=== PATIENT | male | born 1935 | race African-American/Black ===

== ENCOUNTER 2017-10-17 12:59 | Inpatient (IN) ==
[2017-10-17] MEDS ORDERED: ALUM/MAG/SIMETH/LIDO VISC 1:1 30 ML BOTTLE PO STA (13:41)
[2017-10-17] MEDS ORDERED: ONDANSETRON 4 MG/2 ML VIAL IV STA (13:41)
[2017-10-17] MEDS ORDERED: HYDROmorphone 2 MG/1 ML VIAL IV STA (13:41)
[2017-10-17] MEDS ORDERED: SODIUM CHLORIDE 0.9% 1,000 ML IV STA (13:41)
[2017-10-17 15:22] LABS: Basophils % 0.2 % (0.0-0.8); Hemoglobin 15.1 GM/DL (14.0-18.0); Immature Granulocytes % 0.2 %; Immature Granulocytes Absolute 0.01 #; Lymphocytes # 0.4 10*3/uL (1.4-4.0); Lymphocytes % 8.4 % (21.2-54.2); Mean Corpuscular HGB Conc 35.1 GM/DL (32-36); Mean Corpuscular Hemoglobin 28 PG (27-34); Mean Corpuscular Volume 79.3 FL (87-102); Mean Platelet Volume 9.6 FL (9.6-12.0); Monocytes # 0.3 10*3/uL (0.11-0.8); Monocytes % 5.4 % (1.7-12.7); Neutrophils # 4.5 10*3/uL (1.4-7.4); Neutrophils % 85.8 % (38.7-73.9); Platelet Count 197 T/CUMM (130-400); Red Blood Count 5.42 MC/CUMM (3.8-5.5); Red Cell Distribution Width 13.1 % (9.3-17.3); White Blood Count 5.2 T/CUMM (4-12)
[2017-10-17 15:32] LABS: Lactic Acid 1.3 MMOL/L (0.4-2.0)
[2017-10-17 15:34] LABS: Albumin 4.4 G/DL (3.4-5.0); Calcium 8.8 MG/DL (8.5-10.1); Osmolality,Calculated 284.7 MOS/KG (273-304); Potassium 3.9 MMOL/L (3.5-5.1); Total Protein 8.1 G/DL (6.4-8.3)
[2017-10-17 16:20] LABS: Apearance,Urine CLEAR (Clear); Bilirubin,Urine Negative (Negative); Blood, Urine Small mg/dL (Negative); Glucose,Urine (UA) >=500 mg/dL (Negative); Hyaline Casts,Urine 3 /LPF (0-3); Ketones,Urine Negative (Negative); Mucus,Urine Occasional /LPF (Occasional); Nitrite,Urine Negative (Negative); Protein,Urine >=500 MG/DL; RBC,Urine 3 /HPF (0-4); Urine Color Yellow (Yellow); Urine Specific Gravity 1.016 (1.001-1.035); Urine Urobilinogen < 2.0 EU/DL (0.2-1.0); WBC,Urine 3 /HPF (0-6)
[2017-10-17] MEDS ORDERED: hydrALAZINE 20 MG/1 ML VIAL ONE (16:37)
[2017-10-17] MEDS ORDERED: hydrALAZINE 20 MG/1 ML VIAL IV STA (17:07)
[2017-10-17] MEDS ORDERED: HYDROmorphone 2 MG/1 ML VIAL IV ONE (17:19)
[2017-10-17] MEDS ORDERED: niCARdipine 25 MG/10 ML VIAL IV ONE (17:19)
[2017-10-17] MEDS: niCARdipine INJ 25 MG in SODIUM CHLORIDE 0.9% 240 ML IV PRN (17:35)
[2017-10-17] MEDS ORDERED: ACETAMINOPHEN 325 MG TABLET PO PRN (18:28)
[2017-10-17] MEDS ORDERED: SODIUM CHLORIDE 0.9% 1,000 ML IV SCH (18:28)
[2017-10-17] MEDS: DOCUSATE SODIUM 100 MG CAPSULE PO SCH (21:33)
[2017-10-17] MEDS: amLODIPine 5 MG TABLET PO SCH (21:33)
[2017-10-17] MEDS: GABAPENTIN 300 MG CAPSULE PO SCH (21:33)
[2017-10-17] MEDS: LISINOPRIL 20 MG TABLET PO SCH (21:33)
[2017-10-17] MEDS: traZODone 50 MG TABLET PO SCH (21:33)
[2017-10-17] MEDS: ENOXAPARIN 40 MG/0.4 ML SYRINGE SUBCUT SCH (21:34)
[2017-10-18 03:36] LABS: Basophils % 0.2 % (0.0-0.8); Hematocrit 45.5 VOL% (42.0-52.0); Hemoglobin 15.2 GM/DL (14.0-18.0); Immature Granulocytes % 0.2 %; Immature Granulocytes Absolute 0.01 #; Lymphocytes # 0.7 10*3/uL (1.4-4.0); Lymphocytes % 13.5 % (21.2-54.2); Mean Corpuscular HGB Conc 33.4 GM/DL (32-36); Mean Corpuscular Hemoglobin 28 PG (27-34); Mean Corpuscular Volume 82.3 FL (87-102); Mean Platelet Volume 9.5 FL (9.6-12.0); Monocytes # 0.8 10*3/uL (0.11-0.8); Monocytes % 15.7 % (1.7-12.7); Neutrophils # 3.6 10*3/uL (1.4-7.4); Neutrophils % 70.4 % (38.7-73.9); Platelet Count 194 T/CUMM (130-400); Red Blood Count 5.53 MC/CUMM (3.8-5.5); Red Cell Distribution Width 13.3 % (9.3-17.3); White Blood Count 5.2 T/CUMM (4-12)
[2017-10-18 04:02] LABS: Band Neutrophils 5 % (0-10); Lymphocytes 16 % (20-55); Polychromasia Slight; Segmented Neutrophils 67 % (50-85); Total Cells Counted 100
[2017-10-18 04:06] LABS: Albumin 4.2 G/DL (3.4-5.0); Bilirubin,Total 1.2 MG/DL (0.2-1.0); Osmolality,Calculated 288.1 MOS/KG (273-304); Potassium 4.5 MMOL/L (3.5-5.1); Risk Ratio 3.59; Total Protein 7.8 G/DL (6.4-8.3); VLDL CHOLESTEROL 19.8 MG/DL
[2017-10-18] MEDS: DOCUSATE SODIUM 100 MG CAPSULE PO SCH ×2 (08:36→22:00)
[2017-10-18] MEDS: GABAPENTIN 300 MG CAPSULE PO SCH ×3 (08:36→22:00)
[2017-10-18] MEDS: PANTOPRAZOLE 40 MG VIAL IV SCH (08:36)
[2017-10-18] MEDS: amLODIPine 5 MG TABLET PO SCH (08:37)
[2017-10-18] MEDS: TAMSULOSIN 0.4 MG CAPSULE PO SCH (08:37)
[2017-10-18] MEDS: LISINOPRIL 20 MG TABLET PO SCH ×2 (08:37→22:00)
[2017-10-18] MEDS: ALLOPURINOL 100 MG TABLET PO SCH (08:37)
[2017-10-18] MEDS: ROSUVASTATIN 20 MG TABLET PO SCH (08:38)
[2017-10-18] MEDS: hydroCHLOROthiazide 12.5 MG CAPSULE PO SCH (08:38)
[2017-10-18 08:41] LABS: Lactic Acid 2.2 MMOL/L (0.4-2.0)
[2017-10-18] MEDS: ONDANSETRON 4 MG/2 ML VIAL IV PRN ×2 (08:42→13:48)
[2017-10-18 11:24] LABS: Bacteria,Urine Many /HPF (Few); Squamous Epithelial Cell,Urine Many /HPF (0-10); WBC,Urine 19 /HPF (0-6)
[2017-10-18 11:26] LABS: Apearance,Urine Cloudy (Clear); Bilirubin,Urine 4 mg/dL (Negative); Glucose,Urine (UA) 50 mg/dL (Negative); Ketones,Urine Negative (Negative); Nitrite,Urine Positive (Negative); Protein,Urine 100 MG/DL; Urine Specific Gravity 1.015 (1.001-1.035)
[2017-10-18 11:27] LABS: Blood, Urine Large mg/dL (Negative)
[2017-10-18] MEDS ORDERED: PROMETHAZINE 25 MG/1 ML VIAL IM PRN (11:39)
[2017-10-18] MEDS: cefTRIAXone 1,000 MG in SYRINGE 1 EACH IV SCH (12:01)
[2017-10-18 12:49] LABS: Apearance,Urine Slightly Hazy (Clear); Bacteria,Urine Occasional /HPF (Few); Bilirubin,Urine Negative (Negative); Blood, Urine Moderate mg/dL (Negative); Glucose,Urine (UA) 50 mg/dL (Negative); Ketones,Urine 5 mg/dL (Negative); Mucus,Urine Occasional /LPF (Occasional); Nitrite,Urine Negative (Negative); Protein,Urine >=500 MG/DL; RBC,Urine 2 /HPF (0-4); Sperm,Urine Occasional /HPF (Negative); Squamous Epithelial Cell,Urine Occasional /HPF (0-10); Urine Color Yellow (Yellow); Urine Specific Gravity 1.022 (1.001-1.035); Urine Urobilinogen < 2.0 EU/DL (0.2-1.0); WBC,Urine 1 /HPF (0-6)
[2017-10-18] MEDS: LABETALOL 200 MG TABLET PO SCH ×2 (13:42→22:00)
[2017-10-18] MEDS: metroNIDAZOLE INJ 500 MG in PREMIX 1 EACH IV SCH ×2 (15:10→22:00)
[2017-10-18] MEDS: niCARdipine INJ 25 MG in SODIUM CHLORIDE 0.9% 240 ML IV PRN (16:37)
[2017-10-18] MEDS: SODIUM CHLORIDE 0.45% 1,000 ML IV SCH (17:36)
[2017-10-18] MEDS: traZODone 50 MG TABLET PO SCH (22:00)
[2017-10-18] MEDS: ENOXAPARIN 40 MG/0.4 ML SYRINGE SUBCUT SCH (22:00)
[2017-10-19] MEDS: niCARdipine INJ 25 MG in SODIUM CHLORIDE 0.9% 240 ML IV PRN ×2 (02:37→09:18)
[2017-10-19 03:16] LABS: Basophils % 0.4 % (0.0-0.8); Hematocrit 41.7 VOL% (42.0-52.0); Hemoglobin 14.3 GM/DL (14.0-18.0); Immature Granulocytes % 0.4 %; Immature Granulocytes Absolute 0.02 #; Lymphocytes # 0.6 10*3/uL (1.4-4.0); Lymphocytes % 11.5 % (21.2-54.2); Mean Corpuscular HGB Conc 34.3 GM/DL (32-36); Mean Corpuscular Hemoglobin 28 PG (27-34); Mean Corpuscular Volume 80.8 FL (87-102); Mean Platelet Volume 10.1 FL (9.6-12.0); Monocytes # 0.5 10*3/uL (0.11-0.8); Monocytes % 9.7 % (1.7-12.7); Neutrophils # 4.3 10*3/uL (1.4-7.4); Platelet Count 171 T/CUMM (130-400); Red Blood Count 5.16 MC/CUMM (3.8-5.5); Red Cell Distribution Width 13.2 % (9.3-17.3); White Blood Count 5.5 T/CUMM (4-12)
[2017-10-19] MEDS: SODIUM CHLORIDE 0.45% 1,000 ML IV SCH ×3 (03:36→23:34)
[2017-10-19 03:41] LABS: Calcium 8.8 MG/DL (8.5-10.1); Osmolality,Calculated 291.3 MOS/KG (273-304); Potassium 3.9 MMOL/L (3.5-5.1)
[2017-10-19] MEDS: ONDANSETRON 4 MG/2 ML VIAL IV PRN (05:40)
[2017-10-19] MEDS: GABAPENTIN 300 MG CAPSULE PO SCH ×3 (05:42→21:15)
[2017-10-19] MEDS: metroNIDAZOLE INJ 500 MG in PREMIX 1 EACH IV SCH ×3 (05:42→22:30)
[2017-10-19] MEDS: hydroCHLOROthiazide 12.5 MG CAPSULE PO SCH (08:45)
[2017-10-19] MEDS: LISINOPRIL 20 MG TABLET PO SCH ×2 (08:45→21:15)
[2017-10-19] MEDS: ALLOPURINOL 100 MG TABLET PO SCH (08:46)
[2017-10-19] MEDS: PANTOPRAZOLE 40 MG VIAL IV SCH (08:46)
[2017-10-19] MEDS: LABETALOL 200 MG TABLET PO SCH ×2 (08:46→21:15)
[2017-10-19] MEDS: ASPIRIN EC 81 MG TABLET PO SCH (08:46)
[2017-10-19] MEDS: ROSUVASTATIN 20 MG TABLET PO SCH (08:46)
[2017-10-19] MEDS: DOCUSATE SODIUM 100 MG CAPSULE PO SCH ×2 (08:46→21:15)
[2017-10-19] MEDS: TAMSULOSIN 0.4 MG CAPSULE PO SCH (08:46)
[2017-10-19] MEDS: HYDROmorphone 2 MG/1 ML VIAL IV PRN (12:42)
[2017-10-19] MEDS: POLYETHYLENE GLYCOL POWDER 17 GM PACK PO SCH (12:44)
[2017-10-19] MEDS: cefTRIAXone 1,000 MG in SYRINGE 1 EACH IV SCH (12:44)
[2017-10-19] MEDS: traZODone 50 MG TABLET PO SCH (21:15)
[2017-10-19] MEDS: ENOXAPARIN 40 MG/0.4 ML SYRINGE SUBCUT SCH (23:35)
[2017-10-20] MEDS: GABAPENTIN 300 MG CAPSULE PO SCH ×3 (05:43→21:05)
[2017-10-20] MEDS: ACETAMINOPHEN 325 MG TABLET PO PRN (05:43)
[2017-10-20] MEDS: metroNIDAZOLE INJ 500 MG in PREMIX 1 EACH IV SCH ×3 (05:44→23:20)
[2017-10-20] MEDS: ROSUVASTATIN 20 MG TABLET PO SCH (09:32)
[2017-10-20] MEDS: ALLOPURINOL 100 MG TABLET PO SCH (09:32)
[2017-10-20] MEDS: PANTOPRAZOLE 40 MG VIAL IV SCH (09:32)
[2017-10-20] MEDS: LISINOPRIL 20 MG TABLET PO SCH ×2 (09:32→20:13)
[2017-10-20] MEDS: TAMSULOSIN 0.4 MG CAPSULE PO SCH (09:32)
[2017-10-20] MEDS: DOCUSATE SODIUM 100 MG CAPSULE PO SCH ×2 (09:32→20:14)
[2017-10-20] MEDS: hydroCHLOROthiazide 12.5 MG CAPSULE PO SCH (09:32)
[2017-10-20] MEDS: ASPIRIN EC 81 MG TABLET PO SCH (09:32)
[2017-10-20] MEDS: FINASTERIDE 5 MG TABLET PO SCH (09:32)
[2017-10-20] MEDS: POLYETHYLENE GLYCOL POWDER 17 GM PACK PO SCH (09:33)
[2017-10-20] MEDS: SODIUM CHLORIDE 0.45% 1,000 ML IV SCH (12:38)
[2017-10-20] MEDS: cefTRIAXone 1,000 MG in SYRINGE 1 EACH IV SCH (13:48)
[2017-10-20] MEDS: ENOXAPARIN 40 MG/0.4 ML SYRINGE SUBCUT SCH (20:13)
[2017-10-20] MEDS: traZODone 50 MG TABLET PO SCH (20:14)
[2017-10-21] MEDS: MORPHINE 4 MG/1 ML VIAL IV PRN ×2 (00:31→12:48)
[2017-10-21] MEDS: SODIUM CHLORIDE 0.45% 1,000 ML IV SCH ×2 (01:44→12:53)
[2017-10-21] MEDS: GABAPENTIN 300 MG CAPSULE PO SCH ×3 (05:35→21:10)
[2017-10-21] MEDS: metroNIDAZOLE INJ 500 MG in PREMIX 1 EACH IV SCH ×3 (05:35→21:40)
[2017-10-21] MEDS: PANTOPRAZOLE 40 MG VIAL IV SCH (09:01)
[2017-10-21] MEDS: POLYETHYLENE GLYCOL POWDER 17 GM PACK PO SCH (09:01)
[2017-10-21] MEDS: ASPIRIN EC 81 MG TABLET PO SCH (09:01)
[2017-10-21] MEDS: ROSUVASTATIN 20 MG TABLET PO SCH (09:01)
[2017-10-21] MEDS: DOCUSATE SODIUM 100 MG CAPSULE PO SCH ×2 (09:01→21:39)
[2017-10-21] MEDS: TAMSULOSIN 0.4 MG CAPSULE PO SCH (09:01)
[2017-10-21] MEDS: LISINOPRIL 20 MG TABLET PO SCH ×2 (09:01→21:10)
[2017-10-21] MEDS: FINASTERIDE 5 MG TABLET PO SCH (09:02)
[2017-10-21] MEDS: hydroCHLOROthiazide 12.5 MG CAPSULE PO SCH (09:02)
[2017-10-21] MEDS: ALLOPURINOL 100 MG TABLET PO SCH (09:03)
[2017-10-21] MEDS: cefTRIAXone 1,000 MG in SYRINGE 1 EACH IV SCH (12:44)
[2017-10-21] MEDS: ENOXAPARIN 40 MG/0.4 ML SYRINGE SUBCUT SCH (21:10)
[2017-10-21] MEDS: traZODone 50 MG TABLET PO SCH (21:10)
[2017-10-21] MEDS: ONDANSETRON 4 MG/2 ML VIAL IV PRN (21:10)
[2017-10-22] MEDS: SODIUM CHLORIDE 0.45% 1,000 ML IV SCH ×3 (01:30→14:57)
[2017-10-22] MEDS: metroNIDAZOLE INJ 500 MG in PREMIX 1 EACH IV SCH ×3 (06:06→21:37)
[2017-10-22] MEDS: GABAPENTIN 300 MG CAPSULE PO SCH ×3 (06:06→21:36)
[2017-10-22] MEDS: ROSUVASTATIN 20 MG TABLET PO SCH (08:33)
[2017-10-22] MEDS: ASPIRIN EC 81 MG TABLET PO SCH (08:33)
[2017-10-22] MEDS: ALLOPURINOL 100 MG TABLET PO SCH (08:34)
[2017-10-22] MEDS: hydroCHLOROthiazide 12.5 MG CAPSULE PO SCH (08:34)
[2017-10-22] MEDS: PANTOPRAZOLE 40 MG VIAL IV SCH (08:34)
[2017-10-22] MEDS: LISINOPRIL 20 MG TABLET PO SCH ×2 (08:34→20:23)
[2017-10-22] MEDS: DOCUSATE SODIUM 100 MG CAPSULE PO SCH ×3 (08:34→20:23)
[2017-10-22] MEDS: FINASTERIDE 5 MG TABLET PO SCH (08:34)
[2017-10-22] MEDS: TAMSULOSIN 0.4 MG CAPSULE PO SCH (08:34)
[2017-10-22] MEDS: POLYETHYLENE GLYCOL POWDER 17 GM PACK PO SCH (08:37)
[2017-10-22] MEDS ORDERED: ROCURONIUM 100 MG/10 ML VIAL IV ONE (11:38)
[2017-10-22] MEDS: PROPOFOL 1,000 MG/100 ML BOTTLE IV SCH ×3 (11:50→17:53)
[2017-10-22] MEDS ORDERED: PHENYLEPHRINE DRIP 40 MG/250 ML PREMIX IV ONE (11:54)
[2017-10-22] MEDS ORDERED: PHENYLEPHRINE DRIP 40 MG/250 ML PREMIX IV PRN (12:26)
[2017-10-22 12:40] LABS: ABG Base Excess 1.9 MMOL/L (-2.5-2.5); ABG HCO3 26.1 MMOL/L (20-26); ABG PCO2 38.2 MM HG (35-48)
[2017-10-22 12:42] LABS: Basophils % 0.7 % (0.0-0.8); Eosinophils # 0.1 10*3/uL (0.0-0.87); Eosinophils % 2.8 % (0.00-10.9); Hematocrit 33.7 VOL% (42.0-52.0); Hemoglobin 11.5 GM/DL (14.0-18.0); Immature Granulocytes % 0.7 %; Immature Granulocytes Absolute 0.03 #; Lymphocytes # 0.7 10*3/uL (1.4-4.0); Lymphocytes % 16.9 % (21.2-54.2); Mean Corpuscular HGB Conc 34.1 GM/DL (32-36); Mean Corpuscular Hemoglobin 28 PG (27-34); Mean Corpuscular Volume 80.8 FL (87-102); Mean Platelet Volume 10.4 FL (9.6-12.0); Monocytes # 0.6 10*3/uL (0.11-0.8); Monocytes % 13.9 % (1.7-12.7); Neutrophils # 2.8 10*3/uL (1.4-7.4); Platelet Count 112 T/CUMM (130-400); Red Blood Count 4.17 MC/CUMM (3.8-5.5); Red Cell Distribution Width 12.4 % (9.3-17.3); White Blood Count 4.3 T/CUMM (4-12)
[2017-10-22 13:05] LABS: Calcium 8.2 MG/DL (8.5-10.1); Osmolality,Calculated 280.7 MOS/KG (273-304); Potassium 3.2 MMOL/L (3.5-5.1)
[2017-10-22] MEDS: cefTRIAXone 1,000 MG in SYRINGE 1 EACH IV SCH (14:41)
[2017-10-22] MEDS: traZODone 50 MG TABLET PO SCH (20:23)
[2017-10-22] MEDS: ENOXAPARIN 40 MG/0.4 ML SYRINGE SUBCUT SCH (20:23)
[2017-10-23] MEDS: SODIUM CHLORIDE 0.45% 1,000 ML IV SCH ×5 (00:18→23:28)
[2017-10-23] MEDS: PROPOFOL 1,000 MG/100 ML BOTTLE IV SCH ×2 (00:19→13:13)
[2017-10-23 04:15] LABS: ABG Base Excess 2.1 MMOL/L (-2.5-2.5); ABG HCO3 22.8 MMOL/L (20-26); ABG Oxygen Saturation 98.9 % (95-100); ABG PCO2 24.5 MM HG (35-48); ABG PH 7.587 (7.35-7.45); ABG PO2 273.1 MM HG (80-95); ABG TCO2 23.6 MMOL/L (23-27); Pt O2 Delivery Device Ventilator
[2017-10-23 04:27] LABS: Calcium 8.4 MG/DL (8.5-10.1); Osmolality,Calculated 284.3 MOS/KG (273-304); Potassium 3.2 MMOL/L (3.5-5.1)
[2017-10-23] MEDS: GABAPENTIN 300 MG CAPSULE PO SCH ×3 (05:36→22:10)
[2017-10-23] MEDS: metroNIDAZOLE INJ 500 MG in PREMIX 1 EACH IV SCH ×3 (05:36→22:11)
[2017-10-23] MEDS: LISINOPRIL 20 MG TABLET PO SCH (09:41)
[2017-10-23] MEDS: hydroCHLOROthiazide 12.5 MG CAPSULE PO SCH (09:41)
[2017-10-23] MEDS: FINASTERIDE 5 MG TABLET PO SCH (09:54)
[2017-10-23] MEDS: ROSUVASTATIN 20 MG TABLET PO SCH (09:54)
[2017-10-23] MEDS: DOCUSATE SODIUM 100 MG CAPSULE PO SCH ×2 (09:54→22:10)
[2017-10-23] MEDS: ASPIRIN EC 81 MG TABLET PO SCH (09:54)
[2017-10-23] MEDS: TAMSULOSIN 0.4 MG CAPSULE PO SCH (09:54)
[2017-10-23] MEDS: ALLOPURINOL 100 MG TABLET PO SCH (09:54)
[2017-10-23] MEDS: PANTOPRAZOLE 40 MG VIAL IV SCH (09:55)
[2017-10-23] MEDS: POLYETHYLENE GLYCOL POWDER 17 GM PACK PO SCH (09:55)
[2017-10-23] MEDS: POTASSIUM CHLORIDE 20 MEQ/15 ML UDCUP PER TUBE PRN ×4 (09:55→22:10)
[2017-10-23 10:59] LABS: ABG Base Excess -0.5 MMOL/L (-2.5-2.5); ABG Oxygen Saturation 93.8 % (95-100); ABG PCO2 37.8 MM HG (35-48); ABG PH 7.409 (7.35-7.45); ABG PO2 72.4 MM HG (80-95); ABG TCO2 21.5 MMOL/L (23-27)
[2017-10-23] MEDS: cefTRIAXone 1,000 MG in SYRINGE 1 EACH IV SCH (13:03)
[2017-10-23 13:21] LABS: ABG Base Excess -0.2 MMOL/L (-2.5-2.5); ABG HCO3 24.2 MMOL/L (20-26); ABG Oxygen Saturation 98.6 % (95-100); ABG PCO2 38.7 MM HG (35-48); ABG PH 7.405 (7.35-7.45); ABG TCO2 21.9 MMOL/L (23-27); Allen Test Positive
[2017-10-23] MEDS: traZODone 50 MG TABLET PO SCH (22:09)
[2017-10-23] MEDS: ENOXAPARIN 40 MG/0.4 ML SYRINGE SUBCUT SCH (22:10)
[2017-10-24] MEDS: ACETAMINOPHEN 325 MG TABLET PO PRN (00:29)
[2017-10-24 03:21] LABS: ABG Base Excess 0.5 MMOL/L (-2.5-2.5); ABG HCO3 24.9 MMOL/L (20-26); ABG Oxygen Saturation 98.9 % (95-100); ABG PCO2 39.6 MM HG (35-48); ABG PH 7.409 (7.35-7.45); ABG TCO2 21.2 MMOL/L (23-27); Allen Test Positive
[2017-10-24 04:42] LABS: Basophils % 0.6 % (0.0-0.8); Eosinophils # 0.1 10*3/uL (0.0-0.87); Eosinophils % 1.8 % (0.00-10.9); Hematocrit 28.4 VOL% (42.0-52.0); Hemoglobin 9.7 GM/DL (14.0-18.0); Immature Granulocytes % 0.6 %; Immature Granulocytes Absolute 0.03 #; Lymphocytes # 0.7 10*3/uL (1.4-4.0); Lymphocytes % 13.2 % (21.2-54.2); Mean Corpuscular HGB Conc 34.2 GM/DL (32-36); Mean Corpuscular Hemoglobin 28 PG (27-34); Mean Corpuscular Volume 82.1 FL (87-102); Mean Platelet Volume 10.8 FL (9.6-12.0); Monocytes # 0.6 10*3/uL (0.11-0.8); Neutrophils # 3.6 10*3/uL (1.4-7.4); Neutrophils % 71.8 % (38.7-73.9); Platelet Count 91 T/CUMM (130-400); Red Blood Count 3.46 MC/CUMM (3.8-5.5); Red Cell Distribution Width 13.1 % (9.3-17.3)
[2017-10-24 04:59] LABS: Calcium 7.9 MG/DL (8.5-10.1); Osmolality,Calculated 283.3 MOS/KG (273-304); Potassium 3.6 MMOL/L (3.5-5.1)
[2017-10-24 05:08] LABS: Band Neutrophils 1 % (0-10); Eosinophils 2 % (0-10); Hypochromasia 1+; Lymphocytes 6 % (20-55); Ovalocytes Slight; Platelet Estimate Decreased; Segmented Neutrophils 79 % (50-85); Total Cells Counted 100
[2017-10-24] MEDS: GABAPENTIN 300 MG CAPSULE PO SCH ×3 (05:55→21:32)
[2017-10-24] MEDS: metroNIDAZOLE INJ 500 MG in PREMIX 1 EACH IV SCH ×3 (05:56→21:32)
[2017-10-24] MEDS: POTASSIUM CHLORIDE 20 MEQ/15 ML UDCUP PER TUBE PRN ×2 (05:56→09:01)
[2017-10-24] MEDS: SODIUM CHLORIDE 0.45% 1,000 ML IV SCH ×3 (07:45→21:17)
[2017-10-24] MEDS: PANTOPRAZOLE 40 MG VIAL IV SCH (08:43)
[2017-10-24] MEDS: TAMSULOSIN 0.4 MG CAPSULE PO SCH (08:43)
[2017-10-24] MEDS: ROSUVASTATIN 20 MG TABLET PO SCH (08:43)
[2017-10-24] MEDS: FINASTERIDE 5 MG TABLET PO SCH (08:43)
[2017-10-24] MEDS: ALLOPURINOL 100 MG TABLET PO SCH (08:43)
[2017-10-24] MEDS: DOCUSATE SODIUM 100 MG CAPSULE PO SCH ×2 (08:43→21:32)
[2017-10-24] MEDS: POLYETHYLENE GLYCOL POWDER 17 GM PACK PO SCH (08:43)
[2017-10-24] MEDS: ASPIRIN EC 81 MG TABLET PO SCH (08:43)
[2017-10-24] MEDS ORDERED: MAGNESIUM SULF RIDER 2 GM in PREMIX 1 EACH IV PRN (09:32)
[2017-10-24] MEDS ORDERED: MAGNESIUM SULF RIDER 4 GM in PREMIX 1 EACH IV PRN (09:32)
[2017-10-24] MEDS: amLODIPine 5 MG TABLET PO SCH (10:23)
[2017-10-24] MEDS: DORNASE ALFA 2.5 MG/2.5 ML VIAL RESP TX SCH ×2 (10:56→18:55)
[2017-10-24] MEDS: cefTRIAXone 1,000 MG in SYRINGE 1 EACH IV SCH (13:17)
[2017-10-24 13:30] LABS: Apearance,Urine Slightly Hazy (Clear); Bilirubin,Urine Negative (Negative); Blood, Urine Large mg/dL (Negative); Glucose,Urine (UA) Negative (Negative); Ketones,Urine 5 mg/dL (Negative); Nitrite,Urine Negative (Negative); Protein,Urine 100 MG/DL; RBC,Urine 3946 /HPF (0-4); Urine Color Red (Yellow); Urine Specific Gravity 1.013 (1.001-1.035); Urine Urobilinogen < 2.0 EU/DL (0.2-1.0); WBC,Urine 73 /HPF (0-6)
[2017-10-24] MEDS: hydrALAZINE 20 MG/1 ML VIAL IV PRN ×2 (15:35→21:33)
[2017-10-24] MEDS: traZODone 50 MG TABLET PO SCH (21:32)
[2017-10-24] MEDS: ENOXAPARIN 40 MG/0.4 ML SYRINGE SUBCUT SCH (21:33)
[2017-10-25] MEDS: HYDROmorphone 2 MG/1 ML VIAL IV PRN (01:46)
[2017-10-25 03:07] LABS: ABG Base Excess -1.7 MMOL/L (-2.5-2.5); ABG HCO3 23.9 MMOL/L (20-26); ABG Oxygen Saturation 98.2 % (95-100); ABG PCO2 43.9 MM HG (35-48); ABG PH 7.354 (7.35-7.45); ABG PO2 137.9 MM HG (80-95); ABG TCO2 25.3 MMOL/L (23-27); Allen Test Positive
[2017-10-25 04:49] LABS: Basophils % 0.4 % (0.0-0.8); Eosinophils # 0.1 10*3/uL (0.0-0.87); Eosinophils % 1.1 % (0.00-10.9); Hematocrit 30.9 VOL% (42.0-52.0); Hemoglobin 10.3 GM/DL (14.0-18.0); Immature Granulocytes % 0.6 %; Immature Granulocytes Absolute 0.03 #; Lymphocytes # 0.6 10*3/uL (1.4-4.0); Lymphocytes % 10.6 % (21.2-54.2); Mean Corpuscular HGB Conc 33.3 GM/DL (32-36); Mean Corpuscular Hemoglobin 28 PG (27-34); Mean Corpuscular Volume 83.1 FL (87-102); Mean Platelet Volume 10.8 FL (9.6-12.0); Monocytes # 0.6 10*3/uL (0.11-0.8); Monocytes % 11.3 % (1.7-12.7); Neutrophils # 4.1 10*3/uL (1.4-7.4); Platelet Count 110 T/CUMM (130-400); Red Blood Count 3.72 MC/CUMM (3.8-5.5); White Blood Count 5.4 T/CUMM (4-12)
[2017-10-25 05:03] LABS: Calcium 8.1 MG/DL (8.5-10.1); Osmolality,Calculated 282.4 MOS/KG (273-304); Potassium 3.9 MMOL/L (3.5-5.1)
[2017-10-25 05:04] LABS: Calcium 8.1 MG/DL (8.5-10.1); Osmolality,Calculated 284.3 MOS/KG (273-304); Potassium 3.9 MMOL/L (3.5-5.1)
[2017-10-25] MEDS: SODIUM CHLORIDE 0.45% 1,000 ML IV SCH ×3 (05:10→17:36)
[2017-10-25] MEDS: metroNIDAZOLE INJ 500 MG in PREMIX 1 EACH IV SCH ×3 (05:50→21:41)
[2017-10-25] MEDS: POTASSIUM CHLORIDE 20 MEQ/15 ML UDCUP PER TUBE PRN (05:50)
[2017-10-25] MEDS: GABAPENTIN 300 MG CAPSULE PO SCH ×3 (05:50→21:41)
[2017-10-25 06:37] LABS: RBC,Urine 140 /HPF (0-4); WBC,Urine 1 /HPF (0-6)
[2017-10-25 06:39] LABS: Apearance,Urine Slightly Cloudy (Clear); Bilirubin,Urine Negative (Negative); Glucose,Urine (UA) Negative (Negative); Ketones,Urine 25 mg/dL (Negative); Nitrite,Urine Negative (Negative); Protein,Urine 100 MG/DL; Urine Color Amber (Yellow); Urine Specific Gravity 1.015 (1.001-1.035)
[2017-10-25 06:40] LABS: Blood, Urine Large mg/dL (Negative); Urine Urobilinogen 0.2 EU/DL (0.2-1.0)
[2017-10-25] MEDS: DORNASE ALFA 2.5 MG/2.5 ML VIAL RESP TX SCH ×2 (06:54→19:50)
[2017-10-25] MEDS: PANTOPRAZOLE 40 MG VIAL IV SCH (08:38)
[2017-10-25] MEDS: TAMSULOSIN 0.4 MG CAPSULE PO SCH (08:43)
[2017-10-25] MEDS: DOCUSATE SODIUM 100 MG CAPSULE PO SCH ×2 (08:43→20:32)
[2017-10-25] MEDS: amLODIPine 5 MG TABLET PO SCH (08:43)
[2017-10-25] MEDS: ASPIRIN EC 81 MG TABLET PO SCH (08:43)
[2017-10-25] MEDS: ROSUVASTATIN 20 MG TABLET PO SCH (08:43)
[2017-10-25] MEDS: FINASTERIDE 5 MG TABLET PO SCH (08:43)
[2017-10-25] MEDS: ALLOPURINOL 100 MG TABLET PO SCH (08:45)
[2017-10-25] MEDS: POLYETHYLENE GLYCOL POWDER 17 GM PACK PO SCH (08:45)
[2017-10-25] MEDS: hydrALAZINE 20 MG/1 ML VIAL IV PRN ×2 (09:17→15:39)
[2017-10-25] MEDS: ALBUTEROL/IPRATROPIUM 3 ML NEB RESP TX SCH ×4 (10:11→23:24)
[2017-10-25] MEDS ORDERED: FUROSEMIDE 40 MG/4 ML VIAL IV ONE (11:08)
[2017-10-25] MEDS ORDERED: amLODIPine 5 MG TABLET PO ONE (11:15)
[2017-10-25] MEDS: cefTRIAXone 1,000 MG in SYRINGE 1 EACH IV SCH (11:54)
[2017-10-25] MEDS: traZODone 50 MG TABLET PO SCH (20:30)
[2017-10-25] MEDS: ENOXAPARIN 40 MG/0.4 ML SYRINGE SUBCUT SCH (20:32)
[2017-10-26] MEDS: ALBUTEROL/IPRATROPIUM 3 ML NEB RESP TX SCH ×6 (03:31→23:57)
[2017-10-26 04:11] LABS: ABG Base Excess 4.3 MMOL/L (-2.5-2.5); ABG HCO3 28.9 MMOL/L (20-26); ABG Oxygen Saturation 96.9 % (95-100); ABG PCO2 43.5 MM HG (35-48); ABG PH 7.441 (7.35-7.45); ABG PO2 98.9 MM HG (80-95); ABG TCO2 30.3 MMOL/L (23-27); Allen Test Positive
[2017-10-26 05:42] LABS: Basophils % 0.5 % (0.0-0.8); Eosinophils # 0.1 10*3/uL (0.0-0.87); Eosinophils % 2.9 % (0.00-10.9); Hematocrit 29.2 VOL% (42.0-52.0); Immature Granulocytes % 0.5 %; Immature Granulocytes Absolute 0.02 #; Lymphocytes # 0.6 10*3/uL (1.4-4.0); Mean Corpuscular HGB Conc 34.2 GM/DL (32-36); Mean Corpuscular Hemoglobin 28 PG (27-34); Mean Corpuscular Volume 80.7 FL (87-102); Mean Platelet Volume 10.2 FL (9.6-12.0); Monocytes # 0.7 10*3/uL (0.11-0.8); Monocytes % 17.2 % (1.7-12.7); Neutrophils # 2.7 10*3/uL (1.4-7.4); Neutrophils % 63.9 % (38.7-73.9); Platelet Count 120 T/CUMM (130-400); Red Blood Count 3.62 MC/CUMM (3.8-5.5); White Blood Count 4.2 T/CUMM (4-12)
[2017-10-26] MEDS ORDERED: ceFAZolin 1,000 MG in SYRINGE 1 EACH IV ONE (06:00)
[2017-10-26] MEDS ORDERED: diphenhydrAMINE CAP 25 MG CAPSULE PO ONE (06:00)
[2017-10-26] MEDS ORDERED: ceFAZolin 1,000 MG VIAL IRRIG ONE (06:00)
[2017-10-26] MEDS ORDERED: DIAZEPAM 5 MG TABLET PO ONE (06:00)
[2017-10-26] MEDS ORDERED: SODIUM CHLORIDE 0.9% 1,000 ML IV SCH ×2 (06:00)
[2017-10-26 06:02] LABS: Calcium 8.5 MG/DL (8.5-10.1); Potassium 3.6 MMOL/L (3.5-5.1)
[2017-10-26 06:03] LABS: Calcium 8.3 MG/DL (8.5-10.1); Potassium 3.6 MMOL/L (3.5-5.1)
[2017-10-26] MEDS: metroNIDAZOLE INJ 500 MG in PREMIX 1 EACH IV SCH ×3 (06:09→21:30)
[2017-10-26] MEDS: GABAPENTIN 300 MG CAPSULE PO SCH ×3 (06:10→21:12)
[2017-10-26 06:13] LABS: Eosinophils 4 % (0-10); Lymphocytes 19 % (20-55); Platelet Estimate Adequate; Segmented Neutrophils 69 % (50-85); Total Cells Counted 100
[2017-10-26] MEDS: DORNASE ALFA 2.5 MG/2.5 ML VIAL RESP TX SCH ×2 (06:53→20:14)
[2017-10-26] MEDS: ASPIRIN EC 81 MG TABLET PO SCH (08:11)
[2017-10-26] MEDS: ROSUVASTATIN 20 MG TABLET PO SCH (08:11)
[2017-10-26] MEDS: PANTOPRAZOLE 40 MG VIAL IV SCH (08:11)
[2017-10-26] MEDS: TAMSULOSIN 0.4 MG CAPSULE PO SCH (08:12)
[2017-10-26] MEDS: amLODIPine 10 MG TABLET PO SCH (08:12)
[2017-10-26] MEDS: ALLOPURINOL 100 MG TABLET PO SCH (08:12)
[2017-10-26] MEDS: FINASTERIDE 5 MG TABLET PO SCH (08:12)
[2017-10-26] MEDS: DOCUSATE SODIUM 100 MG CAPSULE PO SCH ×2 (08:12→21:13)
[2017-10-26] MEDS: hydrALAZINE 20 MG/1 ML VIAL IV PRN ×3 (08:24→23:06)
[2017-10-26] MEDS ORDERED: LIDOCAINE 1% 20 ML VIAL ONE (08:26)
[2017-10-26] MEDS ORDERED: MIDAZOLAM 2 MG/2 ML VIAL ONE ×2 (09:00→09:18)
[2017-10-26] MEDS ORDERED: fentaNYL 100 MCG/2 ML VIAL ONE (09:00)
[2017-10-26] MEDS: POLYETHYLENE GLYCOL POWDER 17 GM PACK PO SCH (09:00)
[2017-10-26] MEDS ORDERED: PROMETHAZINE 25 MG/1 ML VIAL ONE ×2 (09:19→09:20)
[2017-10-26] MEDS ORDERED: TISSUE ADHESIVE 1 EACH APPLICATOR TOP ONE (10:15)
[2017-10-26] MEDS ORDERED: DEXTROSE 50% 25 GM/50 ML VIAL IV PRN ×2 (10:23→11:05)
[2017-10-26] MEDS ORDERED: GLUCAGON 1 MG VIAL IM PRN ×2 (10:23→11:05)
[2017-10-26] MEDS: cefTRIAXone 1,000 MG in SYRINGE 1 EACH IV SCH (12:01)
[2017-10-26] MEDS ORDERED: SODIUM CHLORIDE 0.9% 500 ML IV ONE (14:58)
[2017-10-26] MEDS: SODIUM CHLORIDE 0.9% 1,000 ML IV SCH (15:13)
[2017-10-26] MEDS: INSULIN REGULAR 100 UNIT/ML SUBCUT SCH ×3 (15:28→21:13)
[2017-10-26] MEDS: traZODone 50 MG TABLET PO SCH (21:13)
[2017-10-26] MEDS: LISINOPRIL 20 MG TABLET PO SCH (21:13)
[2017-10-27] MEDS: SODIUM CHLORIDE 0.9% 1,000 ML IV SCH ×3 (03:04→16:51)
[2017-10-27 03:56] LABS: Basophils % 0.3 % (0.0-0.8); Eosinophils # 0.1 10*3/uL (0.0-0.87); Eosinophils % 1.1 % (0.00-10.9); Hematocrit 28.9 VOL% (42.0-52.0); Hemoglobin 9.9 GM/DL (14.0-18.0); Immature Granulocytes % 0.5 %; Immature Granulocytes Absolute 0.04 #; Lymphocytes # 0.5 10*3/uL (1.4-4.0); Lymphocytes % 5.9 % (21.2-54.2); Mean Corpuscular HGB Conc 34.3 GM/DL (32-36); Mean Corpuscular Hemoglobin 28 PG (27-34); Mean Platelet Volume 10.7 FL (9.6-12.0); Monocytes # 0.9 10*3/uL (0.11-0.8); Monocytes % 11.1 % (1.7-12.7); Neutrophils # 6.5 10*3/uL (1.4-7.4); Neutrophils % 81.1 % (38.7-73.9); Platelet Count 142 T/CUMM (130-400); Red Blood Count 3.57 MC/CUMM (3.8-5.5); Red Cell Distribution Width 13.1 % (9.3-17.3)
[2017-10-27] MEDS: ALBUTEROL/IPRATROPIUM 3 ML NEB RESP TX SCH ×6 (04:02→22:44)
[2017-10-27 04:29] LABS: Allen Test Positive
[2017-10-27 04:30] LABS: ABG HCO3 26.2 MMOL/L (20-26); ABG Oxygen Saturation 98.1 % (95-100); ABG PCO2 40.5 MM HG (35-48); ABG PH 7.425 (7.35-7.45)
[2017-10-27 04:35] LABS: Band Neutrophils 1 % (0-10); Lymphocytes 11 % (20-55); Platelet Estimate Normal; Segmented Neutrophils 83 % (50-85); Total Cells Counted 100
[2017-10-27] MEDS: metroNIDAZOLE INJ 500 MG in PREMIX 1 EACH IV SCH ×2 (06:29→17:33)
[2017-10-27] MEDS: GABAPENTIN 300 MG CAPSULE PO SCH ×3 (06:29→22:02)
[2017-10-27] MEDS: DORNASE ALFA 2.5 MG/2.5 ML VIAL RESP TX SCH ×2 (06:39→19:16)
[2017-10-27] MEDS: ASPIRIN EC 81 MG TABLET PO SCH (08:45)
[2017-10-27] MEDS: INSULIN REGULAR 100 UNIT/ML SUBCUT SCH ×4 (08:45→22:02)
[2017-10-27] MEDS: DOXAZOSIN 1 MG TABLET PO SCH ×2 (08:46→20:37)
[2017-10-27] MEDS: DOCUSATE SODIUM 100 MG CAPSULE PO SCH ×2 (08:46→20:37)
[2017-10-27] MEDS: ROSUVASTATIN 20 MG TABLET PO SCH (08:47)
[2017-10-27] MEDS: TAMSULOSIN 0.4 MG CAPSULE PO SCH (08:47)
[2017-10-27] MEDS: amLODIPine 10 MG TABLET PO SCH (08:47)
[2017-10-27] MEDS: ALLOPURINOL 100 MG TABLET PO SCH (08:48)
[2017-10-27] MEDS: PANTOPRAZOLE 40 MG VIAL IV SCH (08:48)
[2017-10-27] MEDS: FINASTERIDE 5 MG TABLET PO SCH (08:48)
[2017-10-27] MEDS: POLYETHYLENE GLYCOL POWDER 17 GM PACK PO SCH (08:48)
[2017-10-27] MEDS: LISINOPRIL 20 MG TABLET PO SCH ×2 (08:48→20:37)
[2017-10-27] MEDS: hydrALAZINE 20 MG/1 ML VIAL IV PRN (11:16)
[2017-10-27] MEDS: cefTRIAXone 1,000 MG in SYRINGE 1 EACH IV SCH (12:38)
[2017-10-27] MEDS: traZODone 50 MG TABLET PO SCH (20:37)
[2017-10-28] MEDS: SODIUM CHLORIDE 0.9% 1,000 ML IV SCH ×2 (02:34→10:00)
[2017-10-28] MEDS: ALBUTEROL/IPRATROPIUM 3 ML NEB RESP TX SCH ×6 (02:42→22:56)
[2017-10-28] MEDS: hydrALAZINE 20 MG/1 ML VIAL IV PRN (05:21)
[2017-10-28] MEDS: GABAPENTIN 300 MG CAPSULE PO SCH ×3 (05:21→21:01)
[2017-10-28 07:20] LABS: Calcium 8.1 MG/DL (8.5-10.1); Potassium 3.7 MMOL/L (3.5-5.1)
[2017-10-28] MEDS: DORNASE ALFA 2.5 MG/2.5 ML VIAL RESP TX SCH ×2 (07:52→19:28)
[2017-10-28] MEDS: DOCUSATE SODIUM 100 MG CAPSULE PO SCH ×2 (08:25→21:01)
[2017-10-28] MEDS: TAMSULOSIN 0.4 MG CAPSULE PO SCH (08:25)
[2017-10-28] MEDS: LISINOPRIL 20 MG TABLET PO SCH ×2 (08:25→21:01)
[2017-10-28] MEDS: ALLOPURINOL 100 MG TABLET PO SCH (08:25)
[2017-10-28] MEDS: ASPIRIN EC 81 MG TABLET PO SCH (08:25)
[2017-10-28] MEDS: FINASTERIDE 5 MG TABLET PO SCH (08:25)
[2017-10-28] MEDS: DOXAZOSIN 1 MG TABLET PO SCH ×2 (08:25→21:01)
[2017-10-28] MEDS: POLYETHYLENE GLYCOL POWDER 17 GM PACK PO SCH (08:25)
[2017-10-28] MEDS: PANTOPRAZOLE 40 MG VIAL IV SCH (08:25)
[2017-10-28] MEDS: ROSUVASTATIN 20 MG TABLET PO SCH (08:25)
[2017-10-28] MEDS: amLODIPine 10 MG TABLET PO SCH (08:25)
[2017-10-28] MEDS: INSULIN REGULAR 100 UNIT/ML SUBCUT SCH ×4 (08:26→21:05)
[2017-10-28] MEDS: cefTRIAXone 1,000 MG in SYRINGE 1 EACH IV SCH (12:48)
[2017-10-28] MEDS: traZODone 50 MG TABLET PO SCH (21:01)
[2017-10-29] MEDS: ALBUTEROL/IPRATROPIUM 3 ML NEB RESP TX SCH ×6 (02:27→23:41)
[2017-10-29 05:08] LABS: Basophils % 0.4 % (0.0-0.8); Eosinophils # 0.1 10*3/uL (0.0-0.87); Eosinophils % 2.6 % (0.00-10.9); Hematocrit 25.3 VOL% (42.0-52.0); Hemoglobin 8.5 GM/DL (14.0-18.0); Immature Granulocytes % 0.4 %; Immature Granulocytes Absolute 0.02 #; Lymphocytes # 0.7 10*3/uL (1.4-4.0); Mean Corpuscular HGB Conc 33.6 GM/DL (32-36); Mean Corpuscular Hemoglobin 28 PG (27-34); Mean Corpuscular Volume 83.5 FL (87-102); Mean Platelet Volume 11.2 FL (9.6-12.0); Monocytes # 0.5 10*3/uL (0.11-0.8); Monocytes % 9.8 % (1.7-12.7); Neutrophils # 3.4 10*3/uL (1.4-7.4); Neutrophils % 72.8 % (38.7-73.9); Red Blood Count 3.03 MC/CUMM (3.8-5.5); White Blood Count 4.7 T/CUMM (4-12)
[2017-10-29 05:17] LABS: Platelet Count 121 T/CUMM (130-400)
[2017-10-29 05:27] LABS: Hypochromasia 1+; Ovalocytes Slight
[2017-10-29] MEDS: GABAPENTIN 300 MG CAPSULE PO SCH ×3 (05:28→21:00)
[2017-10-29 05:30] LABS: Albumin 2.1 G/DL (3.4-5.0); Bilirubin,Total 0.6 MG/DL (0.2-1.0); Calcium 8.1 MG/DL (8.5-10.1); Potassium 4.1 MMOL/L (3.5-5.1)
[2017-10-29] MEDS: DORNASE ALFA 2.5 MG/2.5 ML VIAL RESP TX SCH ×2 (08:05→19:26)
[2017-10-29] MEDS: INSULIN REGULAR 100 UNIT/ML SUBCUT SCH ×4 (08:14→20:55)
[2017-10-29] MEDS: amLODIPine 10 MG TABLET PO SCH (10:03)
[2017-10-29] MEDS: TAMSULOSIN 0.4 MG CAPSULE PO SCH (10:03)
[2017-10-29] MEDS: LISINOPRIL 20 MG TABLET PO SCH ×2 (10:03→20:55)
[2017-10-29] MEDS: ROSUVASTATIN 20 MG TABLET PO SCH (10:03)
[2017-10-29] MEDS: DOCUSATE SODIUM 100 MG CAPSULE PO SCH ×2 (10:03→20:55)
[2017-10-29] MEDS: DOXAZOSIN 1 MG TABLET PO SCH ×2 (10:03→20:57)
[2017-10-29] MEDS: FINASTERIDE 5 MG TABLET PO SCH (10:03)
[2017-10-29] MEDS: ASPIRIN EC 81 MG TABLET PO SCH (10:03)
[2017-10-29] MEDS: POLYETHYLENE GLYCOL POWDER 17 GM PACK PO SCH (10:04)
[2017-10-29] MEDS: ALLOPURINOL 100 MG TABLET PO SCH (10:04)
[2017-10-29] MEDS: PANTOPRAZOLE 40 MG VIAL IV SCH (10:04)
[2017-10-29] MEDS: cefTRIAXone 1,000 MG in SYRINGE 1 EACH IV SCH (13:49)
[2017-10-29 18:36] LABS: Hematocrit 25.9 VOL% (42.0-52.0); Hemoglobin 8.6 GM/DL (14.0-18.0)
[2017-10-29] MEDS: traZODone 50 MG TABLET PO SCH (20:55)
[2017-10-30] MEDS: ALBUTEROL/IPRATROPIUM 3 ML NEB RESP TX SCH ×4 (03:29→15:15)
[2017-10-30] MEDS: GABAPENTIN 300 MG CAPSULE PO SCH ×2 (05:00→14:32)
[2017-10-30] MEDS: DORNASE ALFA 2.5 MG/2.5 ML VIAL RESP TX SCH (07:31)
[2017-10-30] MEDS: POLYETHYLENE GLYCOL POWDER 17 GM PACK PO SCH (10:02)
[2017-10-30] MEDS: ROSUVASTATIN 20 MG TABLET PO SCH (10:02)
[2017-10-30] MEDS: FINASTERIDE 5 MG TABLET PO SCH (10:02)
[2017-10-30] MEDS: amLODIPine 10 MG TABLET PO SCH (10:03)
[2017-10-30] MEDS: ASPIRIN EC 81 MG TABLET PO SCH (10:03)
[2017-10-30] MEDS: LISINOPRIL 20 MG TABLET PO SCH (10:03)
[2017-10-30] MEDS: TAMSULOSIN 0.4 MG CAPSULE PO SCH (10:04)
[2017-10-30] MEDS: ALLOPURINOL 100 MG TABLET PO SCH (10:04)
[2017-10-30] MEDS: DOCUSATE SODIUM 100 MG CAPSULE PO SCH (10:04)
[2017-10-30] MEDS: DOXAZOSIN 1 MG TABLET PO SCH (10:07)
[2017-10-30] MEDS: PANTOPRAZOLE 40 MG VIAL IV SCH (10:07)
[2017-10-30] MEDS: INSULIN REGULAR 100 UNIT/ML SUBCUT SCH ×3 (10:10→17:23)
[2017-10-30] MEDS: cefTRIAXone 1,000 MG in SYRINGE 1 EACH IV SCH (13:47)
[2017-10-30 16:52] VITALS: BP 163/67
== END 2017-10-30 17:30 | DRG 242 ==
LOC: N.ED 12:59 → N.EDINP 17:19 → N.CC 17:40 → N.TELES 10-21 14:52 → N.ICU 10-22 12:07 → N.TELEN 10-27 17:22
PROVIDERS: ADMIT Family Medicine; ATTEND Family Medicine

== ENCOUNTER 2017-10-31 13:24 | Observation (INO) ==
[2017-10-31 14:42] LABS: Basophils % 0.5 % (0.0-0.8); Eosinophils # 0.1 10*3/uL (0.0-0.87); Eosinophils % 2.8 % (0.00-10.9); Hematocrit 28.8 VOL% (42.0-52.0); Hemoglobin 9.7 GM/DL (14.0-18.0); Immature Granulocytes % 1.4 %; Immature Granulocytes Absolute 0.06 #; Lymphocytes # 0.3 10*3/uL (1.4-4.0); Lymphocytes % 7.8 % (21.2-54.2); Mean Corpuscular HGB Conc 33.7 GM/DL (32-36); Mean Corpuscular Hemoglobin 28 PG (27-34); Mean Corpuscular Volume 82.5 FL (87-102); Mean Platelet Volume 10.3 FL (9.6-12.0); Monocytes # 0.4 10*3/uL (0.11-0.8); Neutrophils # 3.5 10*3/uL (1.4-7.4); Neutrophils % 79.5 % (38.7-73.9); Platelet Count 149 T/CUMM (130-400); Red Blood Count 3.49 MC/CUMM (3.8-5.5); Red Cell Distribution Width 12.7 % (9.3-17.3); White Blood Count 4.4 T/CUMM (4-12)
[2017-10-31 15:02] LABS: Albumin 2.8 G/DL (3.4-5.0); Bilirubin,Total 0.4 MG/DL (0.2-1.0); Calcium 8.5 MG/DL (8.5-10.1); Osmolality,Calculated 278.8 MOS/KG (273-304); Potassium 4.2 MMOL/L (3.5-5.1); Total Protein 6.5 G/DL (6.4-8.3)
[2017-10-31] MEDS ORDERED: GLUCAGON 1 MG VIAL IM PRN (15:26)
[2017-10-31] MEDS ORDERED: DEXTROSE 50% 25 GM/50 ML VIAL IV PRN (15:26)
[2017-10-31] MEDS ORDERED: ACETAMINOPHEN 325 MG TABLET PO PRN ×2 (15:26→18:16)
[2017-10-31] MEDS ORDERED: ONDANSETRON 4 MG/2 ML VIAL IV PRN (15:26)
[2017-10-31 15:54] LABS: Platelet Estimate Adequate
[2017-10-31] MEDS ORDERED: MELOXICAM 7.5 MG TABLET PO PRN (18:16)
[2017-10-31] MEDS: DOCUSATE SODIUM 100 MG CAPSULE PO SCH (20:53)
[2017-11-01 01:38] LABS: Apearance,Urine CLEAR (Clear); Bilirubin,Urine Negative (Negative); Blood, Urine Moderate mg/dL (Negative); Glucose,Urine (UA) Negative (Negative); Ketones,Urine Negative (Negative); Nitrite,Urine Negative (Negative); Protein,Urine Negative; RBC,Urine <1 /HPF (0-4); Squamous Epithelial Cell,Urine Occasional /HPF (0-10); Urine Color Yellow (Yellow); Urine Specific Gravity 1.008 (1.001-1.035); Urine Urobilinogen < 2.0 EU/DL (0.2-1.0); WBC,Urine 1 /HPF (0-6)
[2017-11-01 07:59] VITALS: BP 174/82
[2017-11-01] MEDS ORDERED: CETIRIZINE 5 MG TABLET PO SCH (09:00)
[2017-11-01] MEDS ORDERED: PANTOPRAZOLE 40 MG TABLET PO SCH (09:00)
[2017-11-01] MEDS ORDERED: DOXAZOSIN 1 MG TABLET PO SCH (09:00)
[2017-11-01] MEDS ORDERED: amLODIPine 10 MG TABLET PO SCH (09:00)
[2017-11-01] MEDS ORDERED: LISINOPRIL 20 MG TABLET PO SCH (09:00)
[2017-11-01] MEDS ORDERED: ASPIRIN EC 81 MG TABLET PO SCH (09:00)
[2017-11-01] MEDS: DOCUSATE SODIUM 100 MG CAPSULE PO SCH (09:23)
== END 2017-11-01 12:05 ==
LOC: EDUNIT# → EDBD → N.ED 13:24 → N.EDINP 13:24 → N.2W 16:37 → N.TELEN 17:28
PROVIDERS: ADMIT Family Medicine; ATTEND Family Medicine

== ENCOUNTER 2017-11-09 10:09 | Inpatient (IN) ==
[2017-11-09 11:11] LABS: Apearance,Urine CLEAR (Clear); Bacteria,Urine Occasional /HPF (Few); Bilirubin,Urine Negative (Negative); Blood, Urine Small mg/dL (Negative); Glucose,Urine (UA) Negative (Negative); Ketones,Urine Negative (Negative); Mucus,Urine Occasional /LPF (Occasional); Nitrite,Urine Negative (Negative); Protein,Urine Negative; RBC,Urine 2 /HPF (0-4); Squamous Epithelial Cell,Urine Occasional /HPF (0-10); Urine Color Yellow (Yellow); Urine Specific Gravity 1.012 (1.001-1.035); Urine Urobilinogen < 2.0 EU/DL (0.2-1.0); WBC,Urine <1 /HPF (0-6)
[2017-11-09 11:16] LABS: Albumin 2.8 G/DL (3.4-5.0); Bilirubin,Total 0.5 MG/DL (0.2-1.0); Potassium 5.1 MMOL/L (3.5-5.1); Total Protein 6.2 G/DL (6.4-8.3)
[2017-11-09 11:24] LABS: Basophils % 0.4 % (0.0-0.8); Eosinophils # 0.1 10*3/uL (0.0-0.87); Hematocrit 36.1 VOL% (42.0-52.0); Immature Granulocytes % 0.7 %; Immature Granulocytes Absolute 0.04 #; Lymphocytes # 0.4 10*3/uL (1.4-4.0); Lymphocytes % 7.9 % (21.2-54.2); Mean Corpuscular HGB Conc 33.2 GM/DL (32-36); Mean Corpuscular Hemoglobin 28 PG (27-34); Mean Corpuscular Volume 84.1 FL (87-102); Mean Platelet Volume 9.6 FL (9.6-12.0); Monocytes # 0.4 10*3/uL (0.11-0.8); Monocytes % 8.1 % (1.7-12.7); Neutrophils # 4.4 10*3/uL (1.4-7.4); Neutrophils % 80.9 % (38.7-73.9); Platelet Count 137 T/CUMM (130-400); Red Blood Count 4.29 MC/CUMM (3.8-5.5); Red Cell Distribution Width 13.3 % (9.3-17.3); White Blood Count 5.5 T/CUMM (4-12)
[2017-11-09 11:32] LABS: PT Patient Result 10.8 SECS
[2017-11-09 11:52] LABS: Lactic Acid 2.2 MMOL/L (0.4-2.0)
[2017-11-09] MEDS ORDERED: ACETAMINOPHEN 325 MG TABLET PO PRN (14:18)
[2017-11-09] MEDS ORDERED: ONDANSETRON 4 MG/2 ML VIAL IV PRN (14:18)
[2017-11-09] MEDS: SODIUM CHLORIDE 0.9% 1,000 ML IV SCH (16:08)
[2017-11-09] MEDS ORDERED: MELOXICAM 7.5 MG TABLET PO PRN (17:12)
[2017-11-09] MEDS: DOCUSATE SODIUM 100 MG CAPSULE PO SCH (21:12)
[2017-11-09] MEDS: traZODone 50 MG TABLET PO SCH (21:12)
[2017-11-10] MEDS ORDERED: ACETAMINOPHEN 325 MG TABLET PO PRN (07:34)
[2017-11-10] MEDS: ALLOPURINOL 100 MG TABLET PO SCH (08:58)
[2017-11-10] MEDS: ASPIRIN EC 81 MG TABLET PO SCH (08:58)
[2017-11-10] MEDS: LISINOPRIL 20 MG TABLET PO SCH ×2 (08:58→22:12)
[2017-11-10] MEDS: PANTOPRAZOLE 40 MG TABLET PO SCH (08:58)
[2017-11-10] MEDS: FINASTERIDE 5 MG TABLET PO SCH (08:59)
[2017-11-10] MEDS: DOCUSATE SODIUM 100 MG CAPSULE PO SCH ×2 (08:59→23:10)
[2017-11-10] MEDS: DOXAZOSIN 1 MG TABLET PO SCH ×2 (08:59→22:13)
[2017-11-10] MEDS: POLYETHYLENE GLYCOL POWDER 17 GM PACK PO SCH (08:59)
[2017-11-10] MEDS ORDERED: DOCUSATE SODIUM 100 MG CAPSULE PO SCH (09:00)
[2017-11-10] MEDS: CETIRIZINE 5 MG TABLET PO SCH (09:00)
[2017-11-10] MEDS ORDERED: PANTOPRAZOLE 40 MG TABLET PO SCH (09:00)
[2017-11-10] MEDS: GABAPENTIN 600 MG TABLET PO SCH ×2 (14:23→22:12)
[2017-11-10] MEDS: cloNIDine 0.1 MG TABLET PO SCH (22:13)
[2017-11-10] MEDS: traZODone 50 MG TABLET PO SCH (22:13)
[2017-11-11] MEDS: GABAPENTIN 600 MG TABLET PO SCH ×3 (08:30→21:39)
[2017-11-11] MEDS: ALLOPURINOL 100 MG TABLET PO SCH (09:51)
[2017-11-11] MEDS: LISINOPRIL 20 MG TABLET PO SCH ×2 (09:51→21:39)
[2017-11-11] MEDS: ASPIRIN EC 81 MG TABLET PO SCH (09:51)
[2017-11-11] MEDS: PANTOPRAZOLE 40 MG TABLET PO SCH (09:51)
[2017-11-11] MEDS: FINASTERIDE 5 MG TABLET PO SCH (09:51)
[2017-11-11] MEDS: POLYETHYLENE GLYCOL POWDER 17 GM PACK PO SCH (09:51)
[2017-11-11] MEDS: DOXAZOSIN 1 MG TABLET PO SCH ×2 (09:51→21:39)
[2017-11-11] MEDS: CETIRIZINE 5 MG TABLET PO SCH (09:51)
[2017-11-11] MEDS: DOCUSATE SODIUM 100 MG CAPSULE PO SCH ×2 (09:52→21:40)
[2017-11-11] MEDS: SODIUM CHLORIDE 0.9% 1,000 ML IV SCH ×2 (13:05→13:06)
[2017-11-11] MEDS: ZINC OXIDE PASTE 113 GM TUBE TOP PRN (16:31)
[2017-11-11] MEDS: traZODone 50 MG TABLET PO SCH (21:39)
[2017-11-11] MEDS: cloNIDine 0.1 MG TABLET PO SCH (21:39)
[2017-11-12] MEDS: GABAPENTIN 600 MG TABLET PO SCH ×3 (06:00→22:20)
[2017-11-12 06:37] LABS: Basophils % 0.4 % (0.0-0.8); Eosinophils # 0.1 10*3/uL (0.0-0.87); Eosinophils % 2.3 % (0.00-10.9); Hematocrit 32.8 VOL% (42.0-52.0); Hemoglobin 11.2 GM/DL (14.0-18.0); Immature Granulocytes % 0.9 %; Immature Granulocytes Absolute 0.05 #; Lymphocytes # 0.6 10*3/uL (1.4-4.0); Lymphocytes % 10.6 % (21.2-54.2); Mean Corpuscular HGB Conc 34.1 GM/DL (32-36); Mean Corpuscular Hemoglobin 28 PG (27-34); Mean Platelet Volume 10.6 FL (9.6-12.0); Monocytes # 0.8 10*3/uL (0.11-0.8); Monocytes % 13.9 % (1.7-12.7); NRBC # 0.03 10*3/uL; Neutrophils # 4.1 10*3/uL (1.4-7.4); Neutrophils % 71.9 % (38.7-73.9); Platelet Count 125 T/CUMM (130-400); Red Blood Count 4.05 MC/CUMM (3.8-5.5); Red Cell Distribution Width 12.8 % (9.3-17.3); White Blood Count 5.7 T/CUMM (4-12)
[2017-11-12 06:59] LABS: Albumin 2.3 G/DL (3.4-5.0); Bilirubin,Total 1.3 MG/DL (0.2-1.0); Calcium 8.4 MG/DL (8.5-10.1); Osmolality,Calculated 275.8 MOS/KG (273-304); Potassium 4.4 MMOL/L (3.5-5.1); Total Protein 6.1 G/DL (6.4-8.3)
[2017-11-12] MEDS: DOCUSATE SODIUM 100 MG CAPSULE PO SCH ×2 (09:10→23:06)
[2017-11-12] MEDS: FINASTERIDE 5 MG TABLET PO SCH (09:10)
[2017-11-12] MEDS: ASPIRIN EC 81 MG TABLET PO SCH (09:10)
[2017-11-12] MEDS: LISINOPRIL 20 MG TABLET PO SCH ×2 (09:10→22:19)
[2017-11-12] MEDS: ALLOPURINOL 100 MG TABLET PO SCH (09:10)
[2017-11-12] MEDS: CETIRIZINE 5 MG TABLET PO SCH (09:10)
[2017-11-12] MEDS: DOXAZOSIN 1 MG TABLET PO SCH ×2 (09:10→22:19)
[2017-11-12] MEDS: PANTOPRAZOLE 40 MG TABLET PO SCH (09:10)
[2017-11-12] MEDS: POLYETHYLENE GLYCOL POWDER 17 GM PACK PO SCH (09:11)
[2017-11-12 12:33] LABS: Band Neutrophils 9 % (0-10); Eosinophils 2 % (0-10); Hypochromasia 2+; Lymphocytes 7 % (20-55); Platelet Estimate Adequate; Polychromasia Slight; Segmented Neutrophils 72 % (50-85); Total Cells Counted 100
[2017-11-12] MEDS: ZINC OXIDE PASTE 113 GM TUBE TOP PRN (20:36)
[2017-11-12] MEDS: traZODone 50 MG TABLET PO SCH (22:20)
[2017-11-12] MEDS: cloNIDine 0.1 MG TABLET PO SCH (22:20)
[2017-11-13] MEDS ORDERED: MAGNESIUM SULF RIDER 1 GM in PREMIX 1 EACH IV ONE (02:42)
[2017-11-13] MEDS ORDERED: MAGNESIUM SULF RIDER 100 ML IV ONE (04:51)
[2017-11-13 05:34] LABS: Calcium 8.4 MG/DL (8.5-10.1); Osmolality,Calculated 275.8 MOS/KG (273-304)
[2017-11-13] MEDS: GABAPENTIN 600 MG TABLET PO SCH ×2 (06:47→15:07)
[2017-11-13] MEDS ORDERED: PIPERACILLIN/TAZOBACTAM 3,375 MG in SODIUM CHLORIDE 0.9% 100 ML IV SCH (08:00)
[2017-11-13 08:45] LABS: Basophils % 0.6 % (0.0-0.8); Eosinophils # 0.2 10*3/uL (0.0-0.87); Eosinophils % 3.7 % (0.00-10.9); Hematocrit 29.3 VOL% (42.0-52.0); Hemoglobin 10.1 GM/DL (14.0-18.0); Immature Granulocytes % 1.6 %; Immature Granulocytes Absolute 0.08 #; Lymphocytes # 0.8 10*3/uL (1.4-4.0); Lymphocytes % 16.9 % (21.2-54.2); Mean Corpuscular HGB Conc 34.5 GM/DL (32-36); Mean Corpuscular Hemoglobin 28 PG (27-34); Mean Corpuscular Volume 81.2 FL (87-102); Mean Platelet Volume 10.6 FL (9.6-12.0); Monocytes % 21.2 % (1.7-12.7); Neutrophils # 2.7 10*3/uL (1.4-7.4); Platelet Count 116 T/CUMM (130-400); Red Blood Count 3.61 MC/CUMM (3.8-5.5); Red Cell Distribution Width 12.8 % (9.3-17.3); White Blood Count 4.9 T/CUMM (4-12)
[2017-11-13 09:11] LABS: Band Neutrophils 7 % (0-10); Eosinophils 2 % (0-10); Lymphocytes 18 % (20-55); Platelet Estimate Decreased; Segmented Neutrophils 63 % (50-85); Total Cells Counted 100
[2017-11-13 09:12] LABS: Hypochromasia 1+
[2017-11-13 09:13] LABS: Calcium 7.9 MG/DL (8.5-10.1); Osmolality,Calculated 275.8 MOS/KG (273-304)
[2017-11-13] MEDS: DOXAZOSIN 1 MG TABLET PO SCH ×2 (10:44→21:45)
[2017-11-13] MEDS: FINASTERIDE 5 MG TABLET PO SCH (10:44)
[2017-11-13] MEDS: ALLOPURINOL 100 MG TABLET PO SCH (10:44)
[2017-11-13] MEDS: PANTOPRAZOLE 40 MG TABLET PO SCH (10:44)
[2017-11-13] MEDS: POLYETHYLENE GLYCOL POWDER 17 GM PACK PO SCH (10:45)
[2017-11-13] MEDS: LISINOPRIL 20 MG TABLET PO SCH ×2 (10:45→21:46)
[2017-11-13] MEDS: DOCUSATE SODIUM 100 MG CAPSULE PO SCH ×2 (10:45→21:45)
[2017-11-13] MEDS: ASPIRIN EC 81 MG TABLET PO SCH (10:45)
[2017-11-13] MEDS: CETIRIZINE 5 MG TABLET PO SCH (11:02)
[2017-11-13] MEDS ORDERED: CIPROFLOXACIN INJ 400 MG in PREMIX 1 EACH IV SCH (12:00)
[2017-11-13] MEDS ORDERED: metroNIDAZOLE INJ 500 MG in PREMIX 1 EACH IV SCH (14:00)
[2017-11-13] MEDS: VANCOMYCIN 50 MG/ML 60 ML/BOTTLE PO SCH (17:42)
[2017-11-13] MEDS: traZODone 50 MG TABLET PO SCH (21:45)
[2017-11-13] MEDS: cloNIDine 0.1 MG TABLET PO SCH (22:04)
[2017-11-14] MEDS: GABAPENTIN 600 MG TABLET PO SCH ×4 (00:08→23:08)
[2017-11-14] MEDS: VANCOMYCIN 50 MG/ML 60 ML/BOTTLE PO SCH ×4 (00:09→18:25)
[2017-11-14] MEDS: CETIRIZINE 5 MG TABLET PO SCH (09:02)
[2017-11-14] MEDS: ALLOPURINOL 100 MG TABLET PO SCH (09:02)
[2017-11-14] MEDS: ASPIRIN EC 81 MG TABLET PO SCH (09:02)
[2017-11-14] MEDS: FINASTERIDE 5 MG TABLET PO SCH (09:02)
[2017-11-14] MEDS: DOCUSATE SODIUM 100 MG CAPSULE PO SCH ×2 (09:02→20:31)
[2017-11-14] MEDS: DOXAZOSIN 1 MG TABLET PO SCH ×2 (09:02→20:31)
[2017-11-14] MEDS: PANTOPRAZOLE 40 MG TABLET PO SCH (09:03)
[2017-11-14] MEDS: LISINOPRIL 20 MG TABLET PO SCH ×2 (09:03→20:31)
[2017-11-14] MEDS: POLYETHYLENE GLYCOL POWDER 17 GM PACK PO SCH (09:03)
[2017-11-14] MEDS: CHOLESTYRAMINE 4 GM PACK PO SCH ×2 (12:46→20:34)
[2017-11-14] MEDS: cloNIDine 0.1 MG TABLET PO SCH (20:32)
[2017-11-14] MEDS: traZODone 50 MG TABLET PO SCH (20:32)
[2017-11-15] MEDS: VANCOMYCIN 50 MG/ML 60 ML/BOTTLE PO SCH ×3 (00:16→12:04)
[2017-11-15] MEDS: GABAPENTIN 600 MG TABLET PO SCH ×2 (05:00→14:57)
[2017-11-15] MEDS: ASPIRIN EC 81 MG TABLET PO SCH (09:17)
[2017-11-15] MEDS: PANTOPRAZOLE 40 MG TABLET PO SCH (09:17)
[2017-11-15] MEDS: DOXAZOSIN 1 MG TABLET PO SCH (09:17)
[2017-11-15] MEDS: FINASTERIDE 5 MG TABLET PO SCH (09:18)
[2017-11-15] MEDS: CETIRIZINE 5 MG TABLET PO SCH (09:18)
[2017-11-15] MEDS: ALLOPURINOL 100 MG TABLET PO SCH (09:18)
[2017-11-15] MEDS: LISINOPRIL 20 MG TABLET PO SCH (09:20)
[2017-11-15] MEDS: POLYETHYLENE GLYCOL POWDER 17 GM PACK PO SCH (09:20)
[2017-11-15] MEDS: DOCUSATE SODIUM 100 MG CAPSULE PO SCH (09:21)
[2017-11-15] MEDS: CHOLESTYRAMINE 4 GM PACK PO SCH (09:22)
[2017-11-15 11:48] VITALS: BP 139/68
== END 2017-11-15 16:20 | DRG 312 ==
LOC: EDUNIT# → EDBD → N.ED 10:09 → N.EDINP 12:17 → N.2W 14:06 → N.TELES 15:05 → N.TELEN 11-13 18:07
PROVIDERS: ADMIT Family Medicine; ATTEND Family Medicine

== ENCOUNTER 2018-11-30 12:06 | Inpatient (IN) ==
[2018-11-30] MEDS ORDERED: LEVOFLOXACIN INJ 500 MG in PREMIX 1 EACH IV STA (14:13)
[2018-11-30] MEDS ORDERED: methylPREDNISolone SOD SUC 40 MG/1 ML VIAL IV STA (14:13)
[2018-11-30] MEDS ORDERED: ALBUTEROL 2.5 MG/3 ML NEB RESP TX STA (14:13)
[2018-11-30 14:40] LABS: Basophils % 0.4 % (0.0-0.8); Eosinophils # 0.1 10*3/uL (0.0-0.87); Eosinophils % 3.6 % (0.00-10.9); Hemoglobin 10.2 GM/DL (14.0-18.0); Immature Granulocytes % 0.4 %; Immature Granulocytes Absolute 0.01 #; Lymphocytes # 0.5 10*3/uL (1.4-4.0); Mean Corpuscular HGB Conc 32.9 GM/DL (32-36); Mean Corpuscular Volume 84.2 FL (87-102); Mean Platelet Volume 9.9 FL (9.6-12.0); Monocytes % 17.1 % (1.7-12.7); Neutrophils % 57.5 % (38.7-73.9); Platelet Count 94 T/CUMM (130-400); Red Blood Count 3.68 MC/CUMM (3.8-5.5); Red Cell Distribution Width 12.9 % (9.3-17.3); White Blood Count 2.5 T/CUMM (4-12)
[2018-11-30 15:03] LABS: Albumin 3.3 G/DL (3.4-5.0); Bilirubin,Total 0.4 MG/DL (0.2-1.0); Calcium 8.5 MG/DL (8.5-10.1); Total Protein 6.7 G/DL (6.4-8.3)
[2018-11-30 16:13] LABS: Lymphocytes 20 % (20-55); Segmented Neutrophils 76 % (50-85); Total Cells Counted 100
[2018-11-30 16:14] LABS: Microcytosis 2+; Platelet Estimate Decreased
[2018-11-30 16:15] LABS: Anisocytosis 1+; Polychromasia Few; Reactive Lymphocytes 2+
[2018-11-30] MEDS ORDERED: ONDANSETRON 4 MG/2 ML VIAL IV PRN (16:51)
[2018-11-30] MEDS ORDERED: DEXTROSE 10% 25 GM/250 ML BAG IV PRN (16:51)
[2018-11-30] MEDS ORDERED: GLUCAGON 1 MG VIAL IM PRN (16:51)
[2018-11-30] MEDS ORDERED: cloNIDine 0.1 MG TABLET PO PRN (18:56)
[2018-11-30] MEDS: SODIUM CHLORIDE 0.45% 1,000 ML IV SCH (18:58)
[2018-11-30] MEDS: ALBUTEROL/IPRATROPIUM 3 ML NEB RESP TX SCH ×2 (20:14→23:35)
[2018-11-30] MEDS: traZODone 50 MG TABLET PO SCH (21:10)
[2018-11-30] MEDS: ROSUVASTATIN 10 MG TABLET PO SCH (21:10)
[2018-11-30] MEDS: DOCUSATE SODIUM 100 MG CAPSULE PO SCH (21:11)
[2018-11-30] MEDS: ENOXAPARIN 40 MG/0.4 ML SYRINGE SUBCUT SCH (21:11)
[2018-11-30] MEDS: INSULIN ASPART PROTAMINE/ASPART 70/30 100 UNIT/ML SUBCUT SCH (21:11)
[2018-11-30] MEDS: INSULIN LISPRO 100 UNIT/ML SUBCUT SCH (21:11)
[2018-11-30] MEDS: DOXAZOSIN 1 MG TABLET PO SCH (21:11)
[2018-11-30] MEDS: cloNIDine 0.1 MG TABLET PO SCH (21:11)
[2018-11-30] MEDS: methylPREDNISolone SOD SUC 40 MG/1 ML VIAL IV SCH (22:30)
[2018-11-30] MEDS: GABAPENTIN 600 MG TABLET PO SCH (22:30)
[2018-12-01] MEDS: ALBUTEROL/IPRATROPIUM 3 ML NEB RESP TX SCH ×6 (02:10→23:58)
[2018-12-01 06:00] LABS: Hematocrit 29.8 VOL% (42.0-52.0); Hemoglobin 9.9 GM/DL (14.0-18.0); Immature Granulocytes % 0.6 %; Immature Granulocytes Absolute 0.01 #; Lymphocytes # 0.2 10*3/uL (1.4-4.0); Lymphocytes % 10.7 % (21.2-54.2); Mean Corpuscular HGB Conc 33.2 GM/DL (32-36); Mean Corpuscular Volume 82.3 FL (87-102); Mean Platelet Volume 9.9 FL (9.6-12.0); Neutrophils % 85.7 % (38.7-73.9); Platelet Count 129 T/CUMM (130-400); Red Blood Count 3.62 MC/CUMM (3.8-5.5); Red Cell Distribution Width 12.5 % (9.3-17.3); White Blood Count 1.7 T/CUMM (4-12)
[2018-12-01] MEDS: GABAPENTIN 600 MG TABLET PO SCH ×3 (06:01→21:08)
[2018-12-01] MEDS: methylPREDNISolone SOD SUC 40 MG/1 ML VIAL IV SCH ×3 (06:01→22:26)
[2018-12-01 06:27] LABS: Calcium 8.6 MG/DL (8.5-10.1); Osmolality,Calculated 284.5 MOS/KG (273-304)
[2018-12-01 06:37] LABS: Band Neutrophils 1 % (0-10); Lymphocytes 11 % (20-55); Segmented Neutrophils 85 % (50-85); Total Cells Counted 100
[2018-12-01 06:38] LABS: Anisocytosis 1+; Platelet Estimate Adequate
[2018-12-01] MEDS: INSULIN LISPRO 100 UNIT/ML SUBCUT SCH ×4 (09:15→21:09)
[2018-12-01] MEDS: ALLOPURINOL 100 MG TABLET PO SCH (09:16)
[2018-12-01] MEDS: ASPIRIN EC 81 MG TABLET PO SCH (09:16)
[2018-12-01] MEDS: amLODIPine 5 MG TABLET PO SCH (09:16)
[2018-12-01] MEDS: INSULIN ASPART PROTAMINE/ASPART 70/30 100 UNIT/ML SUBCUT SCH ×2 (09:16→21:09)
[2018-12-01] MEDS: CETIRIZINE 10 MG TABLET PO SCH (09:16)
[2018-12-01] MEDS: LISINOPRIL 20 MG TABLET PO SCH (09:16)
[2018-12-01] MEDS: PANTOPRAZOLE 40 MG TABLET PO SCH (09:16)
[2018-12-01] MEDS: DOCUSATE SODIUM 100 MG CAPSULE PO SCH ×2 (09:16→21:08)
[2018-12-01] MEDS: POLYETHYLENE GLYCOL POWDER 17 GM PACK PO SCH (09:16)
[2018-12-01] MEDS: FINASTERIDE 5 MG TABLET PO SCH (09:16)
[2018-12-01] MEDS: DOXAZOSIN 1 MG TABLET PO SCH ×2 (09:16→21:08)
[2018-12-01] MEDS ORDERED: ALBUTEROL/IPRATROPIUM 3 ML NEB RESP TX PRN (10:55)
[2018-12-01] MEDS: SODIUM CHLORIDE 0.45% 1,000 ML IV SCH (12:18)
[2018-12-01] MEDS: NYSTATIN 500,000 UNIT/5 ML UDCUP SWISH/SWAL SCH ×3 (12:18→21:10)
[2018-12-01] MEDS: LEVOFLOXACIN INJ 500 MG in PREMIX 1 EACH IV SCH (15:03)
[2018-12-01] MEDS: TAMSULOSIN 0.4 MG CAPSULE PO SCH (18:00)
[2018-12-01] MEDS: traZODone 50 MG TABLET PO SCH (21:07)
[2018-12-01] MEDS: ROSUVASTATIN 10 MG TABLET PO SCH (21:08)
[2018-12-01] MEDS: ACETAMINOPHEN 325 MG TABLET PO PRN (21:08)
[2018-12-01] MEDS: cloNIDine 0.1 MG TABLET PO SCH (21:09)
[2018-12-01] MEDS: ENOXAPARIN 40 MG/0.4 ML SYRINGE SUBCUT SCH (21:09)
[2018-12-02] MEDS: ALBUTEROL/IPRATROPIUM 3 ML NEB RESP TX SCH ×6 (04:13→23:39)
[2018-12-02 05:12] LABS: Hematocrit 27.8 VOL% (42.0-52.0); Hemoglobin 9.3 GM/DL (14.0-18.0); Immature Granulocytes % 0.6 %; Immature Granulocytes Absolute 0.02 #; Lymphocytes # 0.2 10*3/uL (1.4-4.0); Lymphocytes % 6.7 % (21.2-54.2); Mean Corpuscular HGB Conc 33.5 GM/DL (32-36); Mean Corpuscular Volume 82.7 FL (87-102); Mean Platelet Volume 10.3 FL (9.6-12.0); Monocytes % 3.9 % (1.7-12.7); Neutrophils % 88.8 % (38.7-73.9); Platelet Count 128 T/CUMM (130-400); Red Blood Count 3.36 MC/CUMM (3.8-5.5); Red Cell Distribution Width 12.6 % (9.3-17.3); White Blood Count 3.3 T/CUMM (4-12)
[2018-12-02 05:40] LABS: Calcium 8.6 MG/DL (8.5-10.1); Osmolality,Calculated 284.5 MOS/KG (273-304)
[2018-12-02] MEDS: GABAPENTIN 600 MG TABLET PO SCH ×3 (06:08→21:25)
[2018-12-02] MEDS: methylPREDNISolone SOD SUC 40 MG/1 ML VIAL IV SCH ×3 (06:08→23:12)
[2018-12-02] MEDS: POLYETHYLENE GLYCOL POWDER 17 GM PACK PO SCH (09:51)
[2018-12-02] MEDS: ASPIRIN EC 81 MG TABLET PO SCH (09:52)
[2018-12-02] MEDS: INSULIN ASPART PROTAMINE/ASPART 70/30 100 UNIT/ML SUBCUT SCH ×2 (09:52→21:28)
[2018-12-02] MEDS: DOXAZOSIN 1 MG TABLET PO SCH ×2 (09:52→21:24)
[2018-12-02] MEDS: INSULIN LISPRO 100 UNIT/ML SUBCUT SCH ×4 (09:52→21:25)
[2018-12-02] MEDS: NYSTATIN 500,000 UNIT/5 ML UDCUP SWISH/SWAL SCH ×4 (09:52→21:25)
[2018-12-02] MEDS: LISINOPRIL 20 MG TABLET PO SCH (09:53)
[2018-12-02] MEDS: amLODIPine 5 MG TABLET PO SCH (09:53)
[2018-12-02] MEDS: FINASTERIDE 5 MG TABLET PO SCH (09:53)
[2018-12-02] MEDS: CETIRIZINE 10 MG TABLET PO SCH (09:53)
[2018-12-02] MEDS: ALLOPURINOL 100 MG TABLET PO SCH (09:53)
[2018-12-02] MEDS: DOCUSATE SODIUM 100 MG CAPSULE PO SCH ×2 (09:53→21:24)
[2018-12-02] MEDS: PANTOPRAZOLE 40 MG TABLET PO SCH (09:53)
[2018-12-02] MEDS: SODIUM CHLORIDE 0.45% 1,000 ML IV SCH (09:58)
[2018-12-02] MEDS: LEVOFLOXACIN INJ 500 MG in PREMIX 1 EACH IV SCH (14:42)
[2018-12-02] MEDS: TAMSULOSIN 0.4 MG CAPSULE PO SCH (17:00)
[2018-12-02] MEDS: ROSUVASTATIN 10 MG TABLET PO SCH (21:24)
[2018-12-02] MEDS: BENZONATATE 100 MG CAPSULE PO SCH (21:24)
[2018-12-02] MEDS: cloNIDine 0.1 MG TABLET PO SCH (21:24)
[2018-12-02] MEDS: traZODone 50 MG TABLET PO SCH (21:24)
[2018-12-02] MEDS: ENOXAPARIN 40 MG/0.4 ML SYRINGE SUBCUT SCH (21:25)
[2018-12-02] MEDS: ACETAMINOPHEN 325 MG TABLET PO PRN (23:11)
[2018-12-03] MEDS: ALBUTEROL/IPRATROPIUM 3 ML NEB RESP TX SCH ×6 (03:24→23:57)
[2018-12-03] MEDS: GABAPENTIN 600 MG TABLET PO SCH ×3 (06:21→22:28)
[2018-12-03] MEDS: methylPREDNISolone SOD SUC 40 MG/1 ML VIAL IV SCH ×3 (06:21→22:28)
[2018-12-03] MEDS: SODIUM CHLORIDE 0.45% 1,000 ML IV SCH (06:24)
[2018-12-03] MEDS: CETIRIZINE 10 MG TABLET PO SCH (08:31)
[2018-12-03] MEDS: DOXAZOSIN 1 MG TABLET PO SCH ×2 (08:31→22:27)
[2018-12-03] MEDS: BENZONATATE 100 MG CAPSULE PO SCH ×3 (08:31→22:27)
[2018-12-03] MEDS: ALLOPURINOL 100 MG TABLET PO SCH (08:32)
[2018-12-03] MEDS: FINASTERIDE 5 MG TABLET PO SCH (08:32)
[2018-12-03] MEDS: LISINOPRIL 20 MG TABLET PO SCH (08:32)
[2018-12-03] MEDS: FUROSEMIDE 20 MG TABLET PO PRN (08:32)
[2018-12-03] MEDS: ASPIRIN EC 81 MG TABLET PO SCH (08:32)
[2018-12-03] MEDS: amLODIPine 5 MG TABLET PO SCH (08:32)
[2018-12-03] MEDS: DOCUSATE SODIUM 100 MG CAPSULE PO SCH ×2 (08:32→22:27)
[2018-12-03] MEDS: PANTOPRAZOLE 40 MG TABLET PO SCH (08:33)
[2018-12-03] MEDS: INSULIN ASPART PROTAMINE/ASPART 70/30 100 UNIT/ML SUBCUT SCH ×2 (08:33→22:30)
[2018-12-03] MEDS: INSULIN LISPRO 100 UNIT/ML SUBCUT SCH ×4 (08:34→22:30)
[2018-12-03] MEDS: POLYETHYLENE GLYCOL POWDER 17 GM PACK PO SCH (08:34)
[2018-12-03] MEDS: NYSTATIN 500,000 UNIT/5 ML UDCUP SWISH/SWAL SCH ×4 (09:00→22:27)
[2018-12-03] MEDS: TAMSULOSIN 0.4 MG CAPSULE PO SCH (17:00)
[2018-12-03] MEDS: LEVOFLOXACIN INJ 500 MG in PREMIX 1 EACH IV SCH (17:01)
[2018-12-03] MEDS: traZODone 50 MG TABLET PO SCH (22:28)
[2018-12-03] MEDS: cloNIDine 0.1 MG TABLET PO SCH (22:28)
[2018-12-03] MEDS: ENOXAPARIN 40 MG/0.4 ML SYRINGE SUBCUT SCH (22:37)
[2018-12-03] MEDS: ROSUVASTATIN 10 MG TABLET PO SCH (22:37)
[2018-12-04] MEDS: ALBUTEROL/IPRATROPIUM 3 ML NEB RESP TX SCH ×6 (03:43→23:19)
[2018-12-04] MEDS: GABAPENTIN 600 MG TABLET PO SCH ×3 (05:41→21:48)
[2018-12-04] MEDS: INSULIN LISPRO 100 UNIT/ML SUBCUT SCH ×4 (10:00→21:46)
[2018-12-04] MEDS: FINASTERIDE 5 MG TABLET PO SCH (10:01)
[2018-12-04] MEDS: DOXAZOSIN 1 MG TABLET PO SCH ×2 (10:01→21:48)
[2018-12-04] MEDS: BENZONATATE 100 MG CAPSULE PO SCH ×3 (10:01→21:47)
[2018-12-04] MEDS: amLODIPine 5 MG TABLET PO SCH (10:01)
[2018-12-04] MEDS: LISINOPRIL 20 MG TABLET PO SCH (10:02)
[2018-12-04] MEDS: CETIRIZINE 10 MG TABLET PO SCH (10:02)
[2018-12-04] MEDS: PANTOPRAZOLE 40 MG TABLET PO SCH (10:02)
[2018-12-04] MEDS: NYSTATIN 500,000 UNIT/5 ML UDCUP SWISH/SWAL SCH ×4 (10:02→21:53)
[2018-12-04] MEDS: ASPIRIN EC 81 MG TABLET PO SCH (10:02)
[2018-12-04] MEDS: DOCUSATE SODIUM 100 MG CAPSULE PO SCH ×2 (10:02→21:48)
[2018-12-04] MEDS: methylPREDNISolone SOD SUC 40 MG/1 ML VIAL IV SCH ×3 (10:03→21:59)
[2018-12-04] MEDS: ALLOPURINOL 100 MG TABLET PO SCH (10:03)
[2018-12-04] MEDS: SODIUM CHLORIDE 0.45% 1,000 ML IV SCH (14:52)
[2018-12-04] MEDS: LEVOFLOXACIN INJ 500 MG in PREMIX 1 EACH IV SCH (15:41)
[2018-12-04] MEDS: INSULIN ASPART PROTAMINE/ASPART 70/30 100 UNIT/ML SUBCUT SCH ×2 (17:21→21:59)
[2018-12-04] MEDS: POLYETHYLENE GLYCOL POWDER 17 GM PACK PO SCH (17:22)
[2018-12-04] MEDS: TAMSULOSIN 0.4 MG CAPSULE PO SCH (17:22)
[2018-12-04] MEDS: traZODone 50 MG TABLET PO SCH (21:47)
[2018-12-04] MEDS: cloNIDine 0.1 MG TABLET PO SCH (21:48)
[2018-12-04] MEDS: ROSUVASTATIN 10 MG TABLET PO SCH (21:48)
[2018-12-04] MEDS: ENOXAPARIN 40 MG/0.4 ML SYRINGE SUBCUT SCH (21:54)
[2018-12-05] MEDS: ALBUTEROL/IPRATROPIUM 3 ML NEB RESP TX SCH ×6 (04:39→23:25)
[2018-12-05] MEDS: GABAPENTIN 600 MG TABLET PO SCH ×3 (05:45→21:19)
[2018-12-05] MEDS ORDERED: MIDAZOLAM 2 MG/2 ML VIAL ONE (06:50)
[2018-12-05] MEDS ORDERED: PROMETHAZINE 25 MG/1 ML VIAL IM ONE (07:00)
[2018-12-05] MEDS ORDERED: MEPERIDINE 50 MG/1 ML VIAL IM ONE (07:00)
[2018-12-05] MEDS ORDERED: LIDOCAINE 2% 20 ML VIAL RESP TX ONE (07:30)
[2018-12-05] MEDS ORDERED: LIDOCAINE 2% VISCOUS 100 ML BOTTLE SWISH/SPIT ONE (07:30)
[2018-12-05] MEDS ORDERED: LIDOCAINE 1% 20 ML VIAL MISC INJ ONE (07:30)
[2018-12-05] MEDS ORDERED: MIDAZOLAM 2 MG/2 ML VIAL IV ONE (07:30)
[2018-12-05] MEDS: INSULIN LISPRO 100 UNIT/ML SUBCUT SCH ×4 (09:38→21:22)
[2018-12-05] MEDS: INSULIN ASPART PROTAMINE/ASPART 70/30 100 UNIT/ML SUBCUT SCH ×2 (09:39→17:48)
[2018-12-05] MEDS: CETIRIZINE 10 MG TABLET PO SCH (09:40)
[2018-12-05] MEDS: LEVOFLOXACIN 500 MG TABLET PO SCH (09:40)
[2018-12-05] MEDS: NYSTATIN 500,000 UNIT/5 ML UDCUP SWISH/SWAL SCH ×4 (09:40→21:14)
[2018-12-05] MEDS: ASPIRIN EC 81 MG TABLET PO SCH (09:41)
[2018-12-05] MEDS: BENZONATATE 100 MG CAPSULE PO SCH ×3 (09:41→21:16)
[2018-12-05] MEDS: FINASTERIDE 5 MG TABLET PO SCH (09:41)
[2018-12-05] MEDS: LISINOPRIL 20 MG TABLET PO SCH (09:42)
[2018-12-05] MEDS: amLODIPine 5 MG TABLET PO SCH (09:42)
[2018-12-05] MEDS: predniSONE 20 MG TABLET PO SCH (09:42)
[2018-12-05] MEDS: ALLOPURINOL 100 MG TABLET PO SCH (09:42)
[2018-12-05] MEDS: PANTOPRAZOLE 40 MG TABLET PO SCH (09:42)
[2018-12-05] MEDS: POLYETHYLENE GLYCOL POWDER 17 GM PACK PO SCH (09:43)
[2018-12-05] MEDS: methylPREDNISolone SOD SUC 40 MG/1 ML VIAL IV SCH (12:37)
[2018-12-05] MEDS: DOCUSATE SODIUM 100 MG CAPSULE PO SCH ×2 (13:45→21:16)
[2018-12-05] MEDS: DOXAZOSIN 1 MG TABLET PO SCH ×2 (13:45→21:15)
[2018-12-05] MEDS: ROSUVASTATIN 10 MG TABLET PO SCH (21:15)
[2018-12-05] MEDS: TAMSULOSIN 0.4 MG CAPSULE PO SCH (21:16)
[2018-12-05] MEDS: traZODone 50 MG TABLET PO SCH (21:16)
[2018-12-05] MEDS: cloNIDine 0.1 MG TABLET PO SCH (21:16)
[2018-12-05] MEDS: ENOXAPARIN 40 MG/0.4 ML SYRINGE SUBCUT SCH (21:16)
[2018-12-06] MEDS: ALBUTEROL/IPRATROPIUM 3 ML NEB RESP TX SCH ×6 (03:06→23:53)
[2018-12-06] MEDS: GABAPENTIN 600 MG TABLET PO SCH ×3 (06:05→21:12)
[2018-12-06] MEDS: SODIUM CHLORIDE 0.45% 1,000 ML IV SCH (07:46)
[2018-12-06] MEDS: INSULIN LISPRO 100 UNIT/ML SUBCUT SCH ×4 (07:47→21:10)
[2018-12-06] MEDS: NYSTATIN 500,000 UNIT/5 ML UDCUP SWISH/SWAL SCH ×4 (09:17→21:11)
[2018-12-06] MEDS: LEVOFLOXACIN 500 MG TABLET PO SCH (09:18)
[2018-12-06] MEDS: BENZONATATE 100 MG CAPSULE PO SCH ×3 (09:18→21:19)
[2018-12-06] MEDS: amLODIPine 5 MG TABLET PO SCH (09:18)
[2018-12-06] MEDS: predniSONE 20 MG TABLET PO SCH (09:18)
[2018-12-06] MEDS: LISINOPRIL 20 MG TABLET PO SCH (09:18)
[2018-12-06] MEDS: INSULIN ASPART PROTAMINE/ASPART 70/30 100 UNIT/ML SUBCUT SCH ×2 (09:18→17:08)
[2018-12-06] MEDS: FUROSEMIDE 20 MG TABLET PO PRN (09:18)
[2018-12-06] MEDS: ASPIRIN EC 81 MG TABLET PO SCH (09:18)
[2018-12-06] MEDS: ALLOPURINOL 100 MG TABLET PO SCH (09:19)
[2018-12-06] MEDS: CETIRIZINE 10 MG TABLET PO SCH (09:19)
[2018-12-06] MEDS: FINASTERIDE 5 MG TABLET PO SCH (09:19)
[2018-12-06] MEDS: PANTOPRAZOLE 40 MG TABLET PO SCH (09:19)
[2018-12-06] MEDS: DOCUSATE SODIUM 100 MG CAPSULE PO SCH ×2 (09:19→21:12)
[2018-12-06] MEDS: DOXAZOSIN 1 MG TABLET PO SCH ×2 (09:19→21:11)
[2018-12-06] MEDS: POLYETHYLENE GLYCOL POWDER 17 GM PACK PO SCH (09:19)
[2018-12-06] MEDS: TAMSULOSIN 0.4 MG CAPSULE PO SCH (17:10)
[2018-12-06] MEDS: ROSUVASTATIN 10 MG TABLET PO SCH (21:11)
[2018-12-06] MEDS: ENOXAPARIN 40 MG/0.4 ML SYRINGE SUBCUT SCH (21:12)
[2018-12-06] MEDS: cloNIDine 0.1 MG TABLET PO SCH (21:12)
[2018-12-06] MEDS: traZODone 50 MG TABLET PO SCH (21:12)
[2018-12-07] MEDS: ALBUTEROL/IPRATROPIUM 3 ML NEB RESP TX SCH ×6 (03:30→23:10)
[2018-12-07] MEDS: GABAPENTIN 600 MG TABLET PO SCH ×3 (06:06→21:50)
[2018-12-07] MEDS: INSULIN LISPRO 100 UNIT/ML SUBCUT SCH ×4 (08:52→21:48)
[2018-12-07] MEDS: NYSTATIN 500,000 UNIT/5 ML UDCUP SWISH/SWAL SCH ×4 (09:05→21:02)
[2018-12-07] MEDS: predniSONE 20 MG TABLET PO SCH (09:06)
[2018-12-07] MEDS: INSULIN ASPART PROTAMINE/ASPART 70/30 100 UNIT/ML SUBCUT SCH ×2 (09:06→18:23)
[2018-12-07] MEDS: POLYETHYLENE GLYCOL POWDER 17 GM PACK PO SCH (09:06)
[2018-12-07] MEDS: ASPIRIN EC 81 MG TABLET PO SCH (09:06)
[2018-12-07] MEDS: ALLOPURINOL 100 MG TABLET PO SCH (09:06)
[2018-12-07] MEDS: DOXAZOSIN 1 MG TABLET PO SCH ×2 (09:06→20:58)
[2018-12-07] MEDS: CETIRIZINE 10 MG TABLET PO SCH (09:06)
[2018-12-07] MEDS: LISINOPRIL 20 MG TABLET PO SCH (09:06)
[2018-12-07] MEDS: FINASTERIDE 5 MG TABLET PO SCH (09:06)
[2018-12-07] MEDS: LEVOFLOXACIN 500 MG TABLET PO SCH (09:07)
[2018-12-07] MEDS: BENZONATATE 100 MG CAPSULE PO SCH ×3 (09:07→20:59)
[2018-12-07] MEDS: DOCUSATE SODIUM 100 MG CAPSULE PO SCH ×2 (09:07→21:00)
[2018-12-07] MEDS: PANTOPRAZOLE 40 MG TABLET PO SCH (09:07)
[2018-12-07] MEDS: amLODIPine 5 MG TABLET PO SCH (09:12)
[2018-12-07] MEDS: FUROSEMIDE 20 MG TABLET PO PRN (09:12)
[2018-12-07 09:35] LABS: Eosinophils % 1.2 % (0.00-10.9); Hematocrit 31.6 VOL% (42.0-52.0); Hemoglobin 10.6 GM/DL (14.0-18.0); Immature Granulocytes % 4.8 %; Immature Granulocytes Absolute 0.16 #; Lymphocytes # 0.4 10*3/uL (1.4-4.0); Lymphocytes % 11.8 % (21.2-54.2); Mean Corpuscular HGB Conc 33.5 GM/DL (32-36); Mean Corpuscular Volume 83.4 FL (87-102); Mean Platelet Volume 10.3 FL (9.6-12.0); Monocytes % 7.3 % (1.7-12.7); NRBC # 0.02 10*3/uL; Neutrophils % 74.9 % (38.7-73.9); Platelet Count 100 T/CUMM (130-400); Red Blood Count 3.79 MC/CUMM (3.8-5.5); Red Cell Distribution Width 13.8 % (9.3-17.3); White Blood Count 3.3 T/CUMM (4-12)
[2018-12-07 09:58] LABS: Albumin 2.6 G/DL (3.4-5.0); Calcium 7.8 MG/DL (8.5-10.1); Osmolality,Calculated 286.7 MOS/KG (273-304); Total Protein 5.7 G/DL (6.4-8.3)
[2018-12-07] MEDS: BUDESONIDE/FORMOTEROL 160-4.5 INHALER 6 GM INH SCH ×2 (10:08→20:55)
[2018-12-07] MEDS: TAMSULOSIN 0.4 MG CAPSULE PO SCH (18:23)
[2018-12-07] MEDS: ROSUVASTATIN 10 MG TABLET PO SCH (20:53)
[2018-12-07] MEDS: traZODone 50 MG TABLET PO SCH (20:57)
[2018-12-07] MEDS: ENOXAPARIN 40 MG/0.4 ML SYRINGE SUBCUT SCH (20:57)
[2018-12-07] MEDS: cloNIDine 0.1 MG TABLET PO SCH (20:58)
[2018-12-08] MEDS: ALBUTEROL/IPRATROPIUM 3 ML NEB RESP TX SCH ×3 (03:10→11:51)
[2018-12-08 05:04] LABS: Eosinophils # 0.1 10*3/uL (0.0-0.87); Eosinophils % 1.6 % (0.00-10.9); Hematocrit 28.7 VOL% (42.0-52.0); Hemoglobin 9.6 GM/DL (14.0-18.0); Immature Granulocytes % 5.5 %; Immature Granulocytes Absolute 0.21 #; Lymphocytes # 0.5 10*3/uL (1.4-4.0); Lymphocytes % 11.8 % (21.2-54.2); Mean Corpuscular HGB Conc 33.4 GM/DL (32-36); Mean Corpuscular Volume 83.2 FL (87-102); Mean Platelet Volume 10.1 FL (9.6-12.0); Monocytes % 8.9 % (1.7-12.7); NRBC # 0.02 10*3/uL; Neutrophils % 72.2 % (38.7-73.9); Platelet Count 99 T/CUMM (130-400); Red Blood Count 3.45 MC/CUMM (3.8-5.5); Red Cell Distribution Width 13.8 % (9.3-17.3); White Blood Count 3.8 T/CUMM (4-12)
[2018-12-08 05:34] LABS: Eosinophils 2 % (0-10); Lymphocytes 13 % (20-55); Segmented Neutrophils 79 % (50-85); Total Cells Counted 100
[2018-12-08 05:35] LABS: Hypochromasia Slight; Platelet Estimate Normal
[2018-12-08] MEDS: INSULIN LISPRO 100 UNIT/ML SUBCUT SCH ×2 (08:37→12:15)
[2018-12-08] MEDS: CETIRIZINE 10 MG TABLET PO SCH (09:13)
[2018-12-08] MEDS: FINASTERIDE 5 MG TABLET PO SCH (09:13)
[2018-12-08] MEDS: ALLOPURINOL 100 MG TABLET PO SCH (09:13)
[2018-12-08] MEDS: LISINOPRIL 20 MG TABLET PO SCH (09:13)
[2018-12-08] MEDS: GABAPENTIN 600 MG TABLET PO SCH ×2 (09:13→15:37)
[2018-12-08] MEDS: ASPIRIN EC 81 MG TABLET PO SCH (09:13)
[2018-12-08] MEDS: DOXAZOSIN 1 MG TABLET PO SCH (09:13)
[2018-12-08] MEDS: PANTOPRAZOLE 40 MG TABLET PO SCH (09:14)
[2018-12-08] MEDS: predniSONE 20 MG TABLET PO SCH (09:14)
[2018-12-08] MEDS: DOCUSATE SODIUM 100 MG CAPSULE PO SCH (09:14)
[2018-12-08] MEDS: INSULIN ASPART PROTAMINE/ASPART 70/30 100 UNIT/ML SUBCUT SCH (09:14)
[2018-12-08] MEDS: POLYETHYLENE GLYCOL POWDER 17 GM PACK PO SCH (09:14)
[2018-12-08] MEDS: NYSTATIN 500,000 UNIT/5 ML UDCUP SWISH/SWAL SCH ×2 (09:14→14:09)
[2018-12-08] MEDS: BENZONATATE 100 MG CAPSULE PO SCH ×2 (09:14→15:37)
[2018-12-08] MEDS: amLODIPine 5 MG TABLET PO SCH (09:14)
[2018-12-08] MEDS: LEVOFLOXACIN 500 MG TABLET PO SCH (09:14)
[2018-12-08] MEDS: BUDESONIDE/FORMOTEROL 160-4.5 INHALER 6 GM INH SCH (09:16)
[2018-12-08] MEDS ORDERED: BISACODYL 10 MG SUPP RECTAL PRN (12:21)
[2018-12-08 16:11] VITALS: BP 143/76
== END 2018-12-08 16:25 | disposition home or self-care (01) | DRG 167 ==
LOC: N.ED 12:06 → N.EDINP 16:51 → N.5E 18:12
PROVIDERS: ADMIT Family Medicine; ATTEND Family Medicine

== ENCOUNTER 2019-02-26 20:35 | Observation (INO) ==
[2019-02-26] MEDS ORDERED: ONDANSETRON 4 MG/2 ML VIAL IV STA (20:55)
[2019-02-26] MEDS ORDERED: PANTOPRAZOLE 40 MG VIAL IV STA (20:55)
[2019-02-26] MEDS ORDERED: ORPHENADRINE 60 MG/2 ML VIAL IV STA (21:00)
[2019-02-26] MEDS ORDERED: KETOROLAC 30 MG/1 ML VIAL IV STA (21:00)
[2019-02-26 22:34] LABS: Basophils % 0.6 % (0.0-0.8); Eosinophils % 0.8 % (0.00-10.9); Hematocrit 29.9 VOL% (42.0-52.0); Hemoglobin 9.6 GM/DL (14.0-18.0); Immature Granulocytes % 0.8 %; Immature Granulocytes Absolute 0.04 #; Lymphocytes # 0.5 10*3/uL (1.4-4.0); Lymphocytes % 9.2 % (21.2-54.2); Mean Corpuscular HGB Conc 32.1 GM/DL (32-36); Mean Corpuscular Volume 82.8 FL (87-102); Neutrophils % 79.6 % (38.7-73.9); Platelet Count 157 T/CUMM (130-400); Red Blood Count 3.61 MC/CUMM (3.8-5.5); Red Cell Distribution Width 13.3 % (9.3-17.3); White Blood Count 4.9 T/CUMM (4-12)
[2019-02-26 22:54] LABS: Alanine Aminotransferase 12 U/L (16-61); Alkaline Phosphatase 75 U/L (45-117); Amylase 50 U/L (25-115); Aspartate Amino Transferase 12 U/L (0-37); Bilirubin,Total < 0.39 MG/DL (0.2-1.0); Blood Urea Nitrogen 22 MG/DL (7-18); Calcium 8.5 MG/DL (8.5-10.1); Estimated Glom Filtration Rate 40 ML/MIN; Glucose 190 MG/DL (74-106); Osmolality,Calculated 280.8 MOS/KG (273-304); Total Protein 7.1 G/DL (6.4-8.3); Troponin I < 0.015 NG/ML (0.00-0.045)
[2019-02-26] MEDS ORDERED: GLUCAGON 1 MG VIAL IM PRN (23:16)
[2019-02-26] MEDS ORDERED: ACETAMINOPHEN 500 MG TABLET PO PRN (23:16)
[2019-02-26] MEDS ORDERED: ONDANSETRON 4 MG/2 ML VIAL IV PRN (23:16)
[2019-02-26] MEDS ORDERED: DEXTROSE 10% 250 ML BAG IV PRN (23:16)
[2019-02-26] MEDS ORDERED: hydrALAZINE 20 MG/1 ML VIAL IV STA (23:35)
[2019-02-26] MEDS ORDERED: FAMOTIDINE 20 MG/2 ML VIAL IV STA (23:42)
[2019-02-26] MEDS ORDERED: diphenhydrAMINE 50 MG/1 ML VIAL IV ONE (23:42)
[2019-02-26] MEDS ORDERED: methylPREDNISolone SOD SUC 125 MG/2 ML VIAL IV STA (23:42)
[2019-02-27] MEDS: ALBUTEROL/IPRATROPIUM 3 ML NEB RESP TX SCH ×4 (00:27→20:41)
[2019-02-27] MEDS ORDERED: hydrALAZINE 20 MG/1 ML VIAL IV STA (01:34)
[2019-02-27] MEDS ORDERED: EPINEPHrine 1 MG/ML VIAL IM ONE ×3 (02:07→02:43)
[2019-02-27 02:12] LABS: Apearance,Urine CLEAR (Clear); Bilirubin,Urine Negative (Negative); Blood, Urine Small mg/dL (Negative); Glucose,Urine (UA) Negative (Negative); Hyaline Casts,Urine 5 /LPF (0-3); Ketones,Urine Negative (Negative); Mucus,Urine Occasional /LPF (Occasional); Nitrite,Urine Negative (Negative); Protein,Urine 30 MG/DL; RBC,Urine 3 /HPF (0-4); Squamous Epithelial Cell,Urine Occasional /HPF (0-10); Urine Color Yellow (Yellow); Urine Specific Gravity 1.015 (1.001-1.035); Urine Urobilinogen < 2.0 EU/DL (0.2-1.0); WBC,Urine 1 /HPF (0-6)
[2019-02-27] MEDS ORDERED: SODIUM CHLORIDE 0.9% 1,000 ML IV PRN (02:43)
[2019-02-27] MEDS ORDERED: diphenhydrAMINE 50 MG/1 ML VIAL IV ONE (04:29)
[2019-02-27 05:35] LABS: Calcium 8.5 MG/DL (8.5-10.1); Osmolality,Calculated 286.2 MOS/KG (273-304)
[2019-02-27] MEDS ORDERED: amLODIPine 5 MG TABLET PO SCH ×2 (09:00→10:41)
[2019-02-27] MEDS ORDERED: LISINOPRIL 20 MG TABLET PO SCH (09:00)
[2019-02-27] MEDS ORDERED: SODIUM CHLORIDE 0.9% 1,000 ML IV ONE (09:03)
[2019-02-27] MEDS: INSULIN REGULAR 100 UNIT/ML SUBCUT SCH ×5 (09:05→21:52)
[2019-02-27] MEDS: DOXAZOSIN 1 MG TABLET PO SCH ×2 (09:48→21:50)
[2019-02-27] MEDS: ASPIRIN EC 81 MG TABLET PO SCH (09:50)
[2019-02-27] MEDS: predniSONE 20 MG TABLET PO SCH (09:51)
[2019-02-27] MEDS: BENZONATATE 100 MG CAPSULE PO SCH ×3 (09:53→21:58)
[2019-02-27] MEDS: cefTRIAXone 1,000 MG in SYRINGE 1 EACH IV SCH (09:53)
[2019-02-27] MEDS: PANTOPRAZOLE 40 MG TABLET PO SCH ×2 (09:54→10:12)
[2019-02-27] MEDS: FINASTERIDE 5 MG TABLET PO SCH (09:55)
[2019-02-27] MEDS: ALLOPURINOL 100 MG TABLET PO SCH (09:56)
[2019-02-27] MEDS: GABAPENTIN 300 MG CAPSULE PO SCH ×2 (09:57→21:51)
[2019-02-27] MEDS: POTASSIUM CHLORIDE 10 MEQ TABLET PO SCH (09:57)
[2019-02-27] MEDS: INSULIN ASPART PROTAMINE/ASPART 70/30 100 UNIT/ML SUBCUT SCH ×2 (10:09→17:38)
[2019-02-27] MEDS: POLYETHYLENE GLYCOL POWDER 17 GM PACK PO SCH (10:11)
[2019-02-27] MEDS ORDERED: amLODIPine 5 MG TABLET PO ONE (10:41)
[2019-02-27] MEDS: FLUTICASONE/SALMETEROL 250-50 DISKUS 14 DOSE INH SCH (11:38)
[2019-02-27] MEDS: hydrALAZINE 25 MG TABLET PO SCH ×2 (11:38→21:58)
[2019-02-27] MEDS ORDERED: MAGNESIUM SULF RIDER 4 GM in PREMIX 1 EACH IV PRN (13:26)
[2019-02-27] MEDS ORDERED: MAGNESIUM SULF RIDER 2 GM in PREMIX 1 EACH IV PRN (13:26)
[2019-02-27] MEDS: METOPROLOL TARTRATE 25 MG TABLET PO SCH ×2 (14:05→21:51)
[2019-02-27] MEDS ORDERED: TAMSULOSIN 0.4 MG CAPSULE PO SCH (18:00)
[2019-02-27] MEDS ORDERED: ROSUVASTATIN 10 MG TABLET PO SCH (21:00)
[2019-02-27] MEDS ORDERED: cloNIDine 0.1 MG TABLET PO SCH (21:00)
[2019-02-27] MEDS ORDERED: traZODone 50 MG TABLET PO SCH (21:00)
[2019-02-28] MEDS: FLUTICASONE/SALMETEROL 250-50 DISKUS 14 DOSE INH SCH ×2 (01:03→09:16)
[2019-02-28] MEDS: ALBUTEROL/IPRATROPIUM 3 ML NEB RESP TX SCH ×2 (02:50→08:10)
[2019-02-28] MEDS: PANTOPRAZOLE 40 MG TABLET PO SCH ×2 (09:14→09:20)
[2019-02-28] MEDS: FINASTERIDE 5 MG TABLET PO SCH (09:14)
[2019-02-28] MEDS: DOXAZOSIN 1 MG TABLET PO SCH (09:14)
[2019-02-28] MEDS: METOPROLOL TARTRATE 25 MG TABLET PO SCH (09:14)
[2019-02-28] MEDS: POTASSIUM CHLORIDE 10 MEQ TABLET PO SCH (09:14)
[2019-02-28] MEDS: hydrALAZINE 25 MG TABLET PO SCH (09:14)
[2019-02-28] MEDS: predniSONE 20 MG TABLET PO SCH (09:14)
[2019-02-28] MEDS: GABAPENTIN 300 MG CAPSULE PO SCH (09:14)
[2019-02-28] MEDS: BENZONATATE 100 MG CAPSULE PO SCH (09:14)
[2019-02-28] MEDS: ASPIRIN EC 81 MG TABLET PO SCH (09:14)
[2019-02-28] MEDS: ALLOPURINOL 100 MG TABLET PO SCH (09:14)
[2019-02-28] MEDS: INSULIN ASPART PROTAMINE/ASPART 70/30 100 UNIT/ML SUBCUT SCH (09:15)
[2019-02-28] MEDS: cefTRIAXone 1,000 MG in SYRINGE 1 EACH IV SCH (09:15)
[2019-02-28] MEDS: INSULIN REGULAR 100 UNIT/ML SUBCUT SCH (09:15)
[2019-02-28] MEDS: POLYETHYLENE GLYCOL POWDER 17 GM PACK PO SCH (09:15)
[2019-02-28 11:39] VITALS: BP 134/69
== END 2019-02-28 13:28 | disposition home or self-care (01) ==
LOC: N.ED 20:35 → N.EDINP 20:35 → N.CC 02-27 01:45 → N.TELES 02-27 14:35
PROVIDERS: ADMIT Family Medicine; ATTEND Family Medicine

== ENCOUNTER 2019-04-13 23:38 | Observation (INO) ==
[2019-04-14 01:35] LABS: Basophils % 0.8 % (0.0-0.8); Hematocrit 32.1 VOL% (42.0-52.0); Hemoglobin 10.4 GM/DL (14.0-18.0); Immature Granulocytes % 0.8 %; Immature Granulocytes Absolute 0.03 #; Lymphocytes # 0.7 10*3/uL (1.4-4.0); Lymphocytes % 17.4 % (21.2-54.2); Mean Corpuscular HGB Conc 32.4 GM/DL (32-36); Mean Corpuscular Volume 81.7 FL (87-102); Mean Platelet Volume 9.6 FL (9.6-12.0); Monocytes % 10.6 % (1.7-12.7); Neutrophils % 69.4 % (38.7-73.9); Platelet Count 140 T/CUMM (130-400); Red Blood Count 3.93 MC/CUMM (3.8-5.5); Red Cell Distribution Width 14.1 % (9.3-17.3)
[2019-04-14 01:42] LABS: PT Patient Result 10.4 SECS (9.6-12.2)
[2019-04-14 02:48] LABS: Alanine Aminotransferase 12 U/L (16-61); Alkaline Phosphatase 73 U/L (45-117); Aspartate Amino Transferase 11 U/L (0-37); Bilirubin,Total < 0.39 MG/DL (0.2-1.0); Blood Urea Nitrogen 18 MG/DL (7-18); Calcium 8.5 MG/DL (8.5-10.1); Estimated Glom Filtration Rate 50 ML/MIN; Glucose 156 MG/DL (74-106); Osmolality,Calculated 281.5 MOS/KG (273-304)
[2019-04-14] MEDS ORDERED: ONDANSETRON 4 MG/2 ML VIAL IV PRN (02:58)
[2019-04-14 06:19] LABS: Basophils % 0.9 % (0.0-0.8); Eosinophils # 0.1 10*3/uL (0.0-0.87); Eosinophils % 1.5 % (0.00-10.9); Hematocrit 28.9 VOL% (42.0-52.0); Hemoglobin 9.3 GM/DL (14.0-18.0); Immature Granulocytes % 0.6 %; Immature Granulocytes Absolute 0.02 #; Lymphocytes # 0.9 10*3/uL (1.4-4.0); Lymphocytes % 26.2 % (21.2-54.2); Mean Corpuscular HGB Conc 32.2 GM/DL (32-36); Mean Corpuscular Volume 81.6 FL (87-102); Mean Platelet Volume 9.4 FL (9.6-12.0); Monocytes % 11.7 % (1.7-12.7); Neutrophils % 59.1 % (38.7-73.9); Platelet Count 127 T/CUMM (130-400); Red Blood Count 3.54 MC/CUMM (3.8-5.5); Red Cell Distribution Width 14.2 % (9.3-17.3); White Blood Count 3.3 T/CUMM (4-12)
[2019-04-14 07:00] LABS: Albumin 2.6 G/DL (3.4-5.0); Bilirubin,Total 0.8 MG/DL (0.2-1.0); Calcium 8.1 MG/DL (8.5-10.1); Osmolality,Calculated 282.5 MOS/KG (273-304); Total Protein 6.3 G/DL (6.4-8.3)
[2019-04-14] MEDS ORDERED: DOCUSATE SODIUM 100 MG CAPSULE PO SCH (09:00)
[2019-04-14] MEDS: PANTOPRAZOLE 40 MG TABLET PO SCH (09:17)
[2019-04-14] MEDS ORDERED: GLUCAGON 1 MG VIAL IM PRN ×2 (13:54→13:55)
[2019-04-14] MEDS ORDERED: DEXTROSE 50% 25 GM/50 ML VIAL IV PRN (13:54)
[2019-04-14] MEDS ORDERED: DEXTROSE 10% 250 ML BAG IV PRN (13:55)
[2019-04-14] MEDS ORDERED: METOPROLOL TARTRATE 25 MG TABLET PO SCH (14:00)
[2019-04-14] MEDS: LORATADINE 10 MG TABLET PO SCH (14:52)
[2019-04-14] MEDS: amLODIPine 5 MG TABLET PO SCH (14:52)
[2019-04-14] MEDS: ASPIRIN EC 81 MG TABLET PO SCH (14:52)
[2019-04-14] MEDS: SODIUM CHLORIDE 0.9% 1,000 ML IV SCH (14:52)
[2019-04-14] MEDS: DOXAZOSIN 1 MG TABLET PO SCH ×2 (14:52→21:13)
[2019-04-14] MEDS: POLYETHYLENE GLYCOL POWDER 17 GM PACK PO SCH (14:52)
[2019-04-14] MEDS ORDERED: ACETAMINOPHEN 325 MG TABLET PO PRN (15:05)
[2019-04-14] MEDS: INSULIN REGULAR 100 UNIT/ML SUBCUT SCH ×2 (16:36→21:15)
[2019-04-14] MEDS: cefTRIAXone 500 MG in SYRINGE 1 EACH IV SCH (17:15)
[2019-04-14] MEDS: INSULIN ASPART PROTAMINE/ASPART 70/30 100 UNIT/ML SUBCUT SCH (17:15)
[2019-04-14] MEDS: TAMSULOSIN 0.4 MG CAPSULE PO SCH (17:16)
[2019-04-14] MEDS: ALBUMIN 25% 25 GM in PREMIX 1 EACH IV SCH (17:21)
[2019-04-14 17:35] LABS: Apearance,Urine CLEAR (Clear); Bilirubin,Urine Negative (Negative); Blood, Urine Small mg/dL (Negative); Glucose,Urine (UA) Negative (Negative); Ketones,Urine Negative (Negative); Mucus,Urine Occasional /LPF (Occasional); Nitrite,Urine Negative (Negative); Protein,Urine Negative; RBC,Urine 2 /HPF (0-4); Urine Color Yellow (Yellow); Urine Specific Gravity 1.012 (1.001-1.035); Urine Urobilinogen < 2.0 EU/DL (0.2-1.0); WBC,Urine 1 /HPF (0-6)
[2019-04-14] MEDS: ALBUTEROL/IPRATROPIUM 3 ML NEB RESP TX SCH (19:10)
[2019-04-14] MEDS: ROSUVASTATIN 10 MG TABLET PO SCH (21:13)
[2019-04-14] MEDS: FLUTICASONE/SALMETEROL 250-50 DISKUS 14 DOSE INH SCH (22:16)
[2019-04-15] MEDS: ALBUTEROL/IPRATROPIUM 3 ML NEB RESP TX SCH ×4 (00:25→19:51)
[2019-04-15] MEDS: ALBUMIN 25% 25 GM in PREMIX 1 EACH IV SCH ×2 (04:15→16:57)
[2019-04-15] MEDS: SODIUM CHLORIDE 0.9% 1,000 ML IV SCH ×2 (04:27→22:16)
[2019-04-15] MEDS: LORATADINE 10 MG TABLET PO SCH (08:54)
[2019-04-15] MEDS: amLODIPine 5 MG TABLET PO SCH (08:54)
[2019-04-15] MEDS: POLYETHYLENE GLYCOL POWDER 17 GM PACK PO SCH (08:55)
[2019-04-15] MEDS: PANTOPRAZOLE 40 MG TABLET PO SCH (08:55)
[2019-04-15] MEDS: FINASTERIDE 5 MG TABLET PO SCH (08:55)
[2019-04-15] MEDS: ASPIRIN EC 81 MG TABLET PO SCH (08:55)
[2019-04-15] MEDS: INSULIN ASPART PROTAMINE/ASPART 70/30 100 UNIT/ML SUBCUT SCH ×2 (08:55→16:52)
[2019-04-15] MEDS: INSULIN REGULAR 100 UNIT/ML SUBCUT SCH ×4 (08:55→22:15)
[2019-04-15] MEDS: allopurinoL 100 MG TABLET PO SCH (08:55)
[2019-04-15] MEDS: DOXAZOSIN 1 MG TABLET PO SCH ×2 (08:56→22:19)
[2019-04-15] MEDS: FLUTICASONE/SALMETEROL 250-50 DISKUS 14 DOSE INH SCH ×2 (08:59→22:14)
[2019-04-15] MEDS ORDERED: hydrALAZINE 20 MG/1 ML VIAL IV PRN (16:37)
[2019-04-15] MEDS: cefTRIAXone 500 MG in SYRINGE 1 EACH IV SCH (16:53)
[2019-04-15] MEDS: TAMSULOSIN 0.4 MG CAPSULE PO SCH (17:01)
[2019-04-15] MEDS: ROSUVASTATIN 10 MG TABLET PO SCH (22:14)
[2019-04-15] MEDS: levETIRAcetam 500 MG TABLET PO SCH (22:14)
[2019-04-16] MEDS: ALBUTEROL/IPRATROPIUM 3 ML NEB RESP TX SCH ×2 (00:04→07:35)
[2019-04-16] MEDS: ALBUMIN 25% 25 GM in PREMIX 1 EACH IV SCH (05:00)
[2019-04-16] MEDS: SODIUM CHLORIDE 0.9% 1,000 ML IV SCH (05:46)
[2019-04-16 05:55] LABS: Basophils % 0.5 % (0.0-0.8); Eosinophils % 0.5 % (0.00-10.9); Hematocrit 28.4 VOL% (42.0-52.0); Hemoglobin 9.4 GM/DL (14.0-18.0); Immature Granulocytes % 0.3 %; Immature Granulocytes Absolute 0.01 #; Lymphocytes # 0.7 10*3/uL (1.4-4.0); Lymphocytes % 19.7 % (21.2-54.2); Mean Corpuscular HGB Conc 33.1 GM/DL (32-36); Mean Corpuscular Volume 80.7 FL (87-102); Mean Platelet Volume 10.5 FL (9.6-12.0); Monocytes % 14.2 % (1.7-12.7); Neutrophils % 64.8 % (38.7-73.9); Platelet Count 144 T/CUMM (130-400); Red Blood Count 3.52 MC/CUMM (3.8-5.5); Red Cell Distribution Width 14.6 % (9.3-17.3); White Blood Count 3.7 T/CUMM (4-12)
[2019-04-16 06:18] LABS: Calcium 8.6 MG/DL (8.5-10.1); Osmolality,Calculated 276.5 MOS/KG (273-304)
[2019-04-16] MEDS: ASPIRIN EC 81 MG TABLET PO SCH (08:30)
[2019-04-16] MEDS: DOXAZOSIN 1 MG TABLET PO SCH (08:30)
[2019-04-16] MEDS: levETIRAcetam 500 MG TABLET PO SCH (08:30)
[2019-04-16] MEDS: FINASTERIDE 5 MG TABLET PO SCH (08:30)
[2019-04-16] MEDS: LORATADINE 10 MG TABLET PO SCH (08:31)
[2019-04-16] MEDS: allopurinoL 100 MG TABLET PO SCH (08:31)
[2019-04-16] MEDS: PANTOPRAZOLE 40 MG TABLET PO SCH (08:31)
[2019-04-16] MEDS: amLODIPine 5 MG TABLET PO SCH (08:31)
[2019-04-16] MEDS: POLYETHYLENE GLYCOL POWDER 17 GM PACK PO SCH (08:37)
[2019-04-16] MEDS: INSULIN REGULAR 100 UNIT/ML SUBCUT SCH (08:37)
[2019-04-16] MEDS: FLUTICASONE/SALMETEROL 250-50 DISKUS 14 DOSE INH SCH (08:38)
[2019-04-16 08:39] VITALS: BP 201/93
[2019-04-16] MEDS ORDERED: METOPROLOL TARTRATE 25 MG TABLET PO SCH (09:00)
[2019-04-16] MEDS: INSULIN ASPART PROTAMINE/ASPART 70/30 100 UNIT/ML SUBCUT SCH (10:10)
== END 2019-04-16 12:00 | disposition home or self-care (01) ==
LOC: EDBD → EDUNIT# → N.ED 23:38 → N.EDINP 23:38 → N.TELEN 04-14 04:00
PROVIDERS: ADMIT Family Medicine; ATTEND Family Medicine